=== PATIENT | female | born 1990 | race Caucasian/White ===

== ENCOUNTER → 2018-10-20 08:42 | Outpatient (CLI) | payer OTHER, SELFPAY ==
[2018-10-20 10:07] LABS: Alanine Aminotransferase 18 IU/L (9-52); Albumin 4.1 g/dL (3.5-5.0); Albumin Globulin Ratio 1.3 (1.0-2.8); Alkaline Phosphatase 69 U/L (38-126); Aspartate Aminotransferase 28 IU/L (14-36); BUN Creatinine Ratio 12.9 (6-22); Bilirubin Total 0.3 mg/dL (0.2-1.3); Blood Urea Nitrogen 9 mg/dL (7-17); Calcium 8.6 mg/dL (8.4-10.2); Carbon Dioxide 24 mmol/L (22-32); Chloride 109 mmol/L (98-107); Cholesterol 201 mg/dL (140-199); Estimated Glomerular Filt Rate > 60.0 mL/min (>60); Globulin 3.2 g/dL (1.7-4.1); Glucose 89 mg/dL (70-100); HDL Cholesterol 50 mg/dL (40-60); HEMOLYSIS < 15 (0-50); LDL Cholesterol Calculated 136 mg/dL (<100); Potassium 3.6 mmol/L (3.4-5.1); Sodium 141 mmol/L (137-145); Total Protein 7.3 g/dL (6.3-8.2); Triglycerides 74 mg/dL (35-150)
[2018-10-20 10:34] LABS: Thyroid Stimulating Hormone 1.65 uIU/mL (0.47-4.68)
== END ==
PROVIDERS: Visit Provider Physician Assistant
DX: E66.01 Morbid (severe) obesity due to excess calories (principal); Z13.1 Encounter for screening for diabetes mellitus; Z13.220 Encounter for screening for lipoid disorders; Z13.6 Encounter for screening for cardiovascular disorders; Z68.41 Body mass index [BMI] 40.0-44.9, adult; Z83.49 Family history of other endocrine, nutritional and metabolic diseases
CPT/HCPCS: 36415; 80053; 80061; 84443

== ENCOUNTER → 2021-03-07 15:00 | Outpatient (CLI) | payer OTHER, SELFPAY ==
--- NOTE | 2021-03-07 15:13 | DI.RAD.S_ITS ---
PROCEDURE: XR TIBIA FIBULA LT 2V INDICATIONS: LEFT LOWER LEG PAIN/INJURY TECHNIQUE: 2 views of the tibia and fibula were acquired. COMPARISON: None. FINDINGS: Bones: No acute fractures or dislocations. No suspicious bony lesions. Prominent plantar calcaneal spur. Soft tissues: No suspicious soft tissue calcifications or masses. IMPRESSION: Left tibia/fibula without acute fracture or dislocation. Prominent plantar calcaneal spur. If there is persistent clinical concern for occult fracture given adequate mechanism of injury, consider repeat imaging in 10-14 days. Dictated by: Migel Luna M.D. on 03/07/2021 at 16:14 Approved by: Migel Luna M.D. on 03/07/2021 at 16:25
== END ==
PROVIDERS: PCP Family Medicine; Referring Provider Family Medicine; Visit Provider Family Medicine
DX: S89.92XA Unspecified injury of left lower leg, initial encounter; M79.605 Pain in left leg; M77.32 Calcaneal spur, left foot; X58.XXXA Exposure to other specified factors, initial encounter
CPT/HCPCS: 73590

== ENCOUNTER → 2021-06-13 09:28 | Outpatient (CLI) | payer BC, SELFPAY ==
--- NOTE | 2021-06-13 09:33 | DI.US.S_ITS ---
PROCEDURE: US ABDOMEN COMPLETE INDICATIONS: ABDOMEN PAIN TECHNIQUE: Real-time scanning was performed of the abdominal and retroperitoneal organs, with image documentation. COMPARISON: None. FINDINGS: Liver: Liver is normal in size and homogeneous in echotexture. Gallbladder: Gallbladder is normal in sonographic appearance without gallstones, gallbladder wall thickening, pericholecystic fluid, or abnormal sonographic Hinkle's. The neck of the gallbladder was somewhat difficult to visualize secondary to patient scanning characteristics. Biliary ducts: Intrahepatic bile ducts are non-dilated. Extrahepatic bile duct caliber measures 3 mm. Normal is 6-7 mm or less in diameter, or 10 mm or less post-cholecystectomy. Pancreas: Pancreas was not well visualized. Spleen: Spleen is normal in size and homogeneous in echotexture. Kidneys: Kidneys are normal in size and echotexture. Right kidney measures 10.6 cm long; left kidney measures 11.2 cm long. No hydronephrosis or nephrolithiasis. No solid masses. Aorta: Visualized aorta is normal in caliber at less than 3 cm. Iliacs: Proximal common iliac arteries are normal in caliber at less than 2.5 cm. IVC: Intrahepatic inferior vena cava is patent. Miscellaneous: No free abdominal fluid. IMPRESSION: Abdomen without acute sonographic abnormalities to explain patient's epigastric pain. Dictated by: Migel Luna M.D. on 06/13/2021 at 14:02 Approved by: Migel Luna M.D. on 06/13/2021 at 14:03
== END ==
PROVIDERS: PCP Family Medicine; Referring Provider Family Medicine; Visit Provider Family Medicine
DX: R10.13 Epigastric pain (principal)
CPT/HCPCS: 76700

== ENCOUNTER → 2022-02-26 14:15 | Outpatient (CLI) | payer OTHER, SELFPAY ==
--- NOTE | 2022-02-26 | DI.US.S_ITS ---
PROCEDURE: US OB <= 14 WEEKS FETUS INDICATIONS: SIZE AND DATES OUTSIDE/PRIOR DATING DATA: Last menstrual period (LMP): January 06, 2022. LMP-based estimated date of delivery (SEFERINO): October 13, 2022 First dating scan (date and location): February 26, 2022, [facility]. TECHNIQUE: Real-time scanning was performed of the fetus and maternal pelvic organs, with image documentation. Endovaginal scanning was also performed to better visualize the fetus and maternal ovaries. COMPARISON: None. FINDINGS: Embryo: There is a gestational sac visualized which measures 1.6 cm in diameter and calculates to a gestational age of 6 weeks 3 days by mean gestational sac diameter. No pole is visualized. A yolk sac is visualized. Maternal organs: The left ovary is not seen. There is likely a right corpus luteal cyst present. There is a anterior midline intramural fibroid which measures 1.7 x 1.9 x 1.5 cm in diameter. IMPRESSION: 1. Gestational sac visualized with yolk sac. No pole visualized. Gestational age by mean gestational sac diameter is 6 weeks 3 days suggesting early dates. Continued sonographic surveillance recommended. 2. Probable right corpus luteal cyst. Please note, in the absence of pole visualized, ectopic cannot be excluded and close clinical surveillance is recommended. We strive to produce accurate, complete, and clear reports of imaging services. To assist us in improving patient care, this report was composed using standard report templates and voice recognition software. Therefore, it may contain abnormal punctuation, insertions and/or omissions. Occasional wrong-word or sound-alike substitutions may occur. Though we review the report and make efforts to correct it, we do recommend that the report be read carefully in proper context to recognize any text inaccuracies. Dictated by: Janet Lozano M.D. on 02/26/2022 at 16:53 Approved by: Janet Lozano M.D. on 02/26/2022 at 16:55
== END ==
PROVIDERS: PCP Family Medicine; Referring Provider Family Medicine; Visit Provider Family Medicine
DX: Z36.87 Encounter for antenatal screening for uncertain dates (principal); Z3A.01 Less than 8 weeks gestation of pregnancy
CPT/HCPCS: 76801; 76817

== ENCOUNTER → 2022-03-21 16:10 | Outpatient (CLI) | payer OTHER, SELFPAY ==
[2022-03-21 17:06] LABS: Add Manual Diff / Slide Review NO; Basophils Absolute Auto 0 /uL (0-100); Basophils Percent Auto 0.4 % (0-2); Eosinophils Absolute Auto 100 /uL (0-450); Hematocrit 39.1 % (36-46); Hemoglobin 13.2 g/dL (12.0-16.0); Lymphocytes Absolute Auto 1500 /uL (1100-4500); Lymphocytes Percent Auto 14.6 % (25-40); Mean Corpuscular HGB Conc 33.7 % (30-36); Mean Corpuscular Hemoglobin 29.3 PG (26-34); Monocytes Absolute Auto 500 /uL (0-900); Monocytes Percent Auto 4.4 % (3-14); Neutrophils Absolute Auto 8400 /uL (1500-7000); Neutrophils Percent Auto 79.6 % (50-75); Platelet Count 194 X10^3/uL (150-400); Red Blood Cell Count 4.49 X10^6/uL (4.0-5.2); Red Cell Distribution Width 12.8 % (11.6-14.8); White Blood Cell Count 10.5 X10^3/uL (4.5-11.0)
[2022-03-21 17:39] LABS: HCG Quantitative /Beta subunit 13978 mIU/mL
== END ==
PROVIDERS: PCP Family Medicine; Referring Provider Family Medicine; Visit Provider Family Medicine
DX: O46.91 Antepartum hemorrhage, unspecified, first trimester (principal); Z3A.00 Weeks of gestation of pregnancy not specified
CPT/HCPCS: 36415; 84702; 85025; 86900; 86901

== ENCOUNTER 2022-05-11 21:08 | Observation (INO) | payer OTHER, SELFPAY ==
[2022-05-11 21:12] VITALS: BP 129/78; PULSE 96; RESP 16; TEMP 36.3; O2SAT 96
[2022-05-11] MEDS: SODIUM CHLORIDE 0.9% 1,000 ML 1000 ML IV (21:24)
[2022-05-11 21:40] LABS: Add Manual Diff / Slide Review NO; Basophils Absolute Auto 100 /uL (0-100); Basophils Percent Auto 0.4 % (0-2); Eosinophils Absolute Auto 200 /uL (0-450); Eosinophils Percent Auto 1.5 % (2-4); Hematocrit 37.1 % (36-46); Hemoglobin 12.2 g/dL (12.0-16.0); Lymphocytes Absolute Auto 1700 /uL (1100-4500); Mean Corpuscular HGB Conc 32.8 % (30-36); Mean Corpuscular Hemoglobin 28.3 PG (26-34); Mean Corpuscular Volume 86.3 fL (80-100); Monocytes Absolute Auto 700 /uL (0-900); Monocytes Percent Auto 5.7 % (3-14); Neutrophils Absolute Auto 9600 /uL (1500-7000); Neutrophils Percent Auto 78.4 % (50-75); Platelet Count 213 X10^3/uL (150-400); Red Cell Distribution Width 13.4 % (11.6-14.8); White Blood Cell Count 12.2 X10^3/uL (4.5-11.0)
[2022-05-11 21:43] LABS: Bilirubin Urine UA NEGATIVE (NEGATIVE); Color Urine UA RED; Glucose Urine UA NEGATIVE (Negative); Ketones Urine UA NEGATIVE (NEGATIVE); Leukocyte Esterase Urine UA NEGATIVE (NEGATIVE); Nitrite Urine UA NEGATIVE (Negative); Occult Blood Urine UA 3+ (Negative); Protein Urine UA 2+ (Negative); Specific Gravity Urine UA >=1.030 (1.000-1.035); Urobilinogen Urine UA 0.2 E.U./dL (0.2)
[2022-05-11 21:44] LABS: Appearance Urine UA Turbid
[2022-05-11 21:45] LABS: Bacteria Urine None Seen; Culture Indicated Urine Cult Not Indicated; RBC Urine >100/HPF (0-5/HPF); Squamous Epithelial Cell Urine 0-1 /HPF (0-5/HPF); WBC Urine 0-1/HPF (0-5/HPF)
[2022-05-11 21:49] LABS: BUN Creatinine Ratio 13.5 (6-22); Blood Urea Nitrogen 12 mg/dL (7-17); Calcium 8.9 mg/dL (8.4-10.2); Carbon Dioxide 24 mmol/L (22-32); Chloride 103 mmol/L (98-107); Estimated Glomerular Filt Rate > 60 mL/min (>60); Glucose 89 mg/dL (70-100); HEMOLYSIS < 15 (0-50); Potassium 3.9 mmol/L (3.4-5.1); Sodium 138 mmol/L (137-145)
[2022-05-11 22:07] LABS: HCG Quantitative /Beta subunit 15.9 mIU/mL
[2022-05-12] VITALS (11 sets, daily range): BP systolic 103–125; BP diastolic 46–77; PULSE 58–86; RESP 10–19; TEMP 36.2–36.7; O2SAT 94–100; BMI 41.7
--- NOTE | 2022-05-12 | PATH_ITS ---
[facility] Accession Number: [id number] No. of containers..01 Tissue . 01 Material submitted: . product of conception - PRODUCTS OF CONCEPTION . 01 Diagnosis: Products of Conception: Chorionic villi present. No evidence of malignancy. [facility] 05/18/2022 0721 Local . 01 Electronically signed: . Steven Moss MD, PhD, Pathologist NPI- [id number] . 01 Gross description: . The specimen is received in formalin labeled with the patient's name, , and products of conception, and consists of multiple hernadez spongy to membranous soft tissue fragments admixed with hemorrhagic material aggregating to 5.7 x 4.5 x 1.3 cm. No tissue is identified. Director [employer] sections are submitted in cassettes A1-A3. ([id number]) /MRV 05/15/2022 1518 Local . 01 Pathologist provided ICD-10: O02.1 . 01 CPT . 803495 Specimen Comment: A courtesy copy of this report has been sent to [phone] Performed at: 01 [facility] [address] [place] [address], [place], [place] [id number] MD Samuel Kothari MD Phone: [phone]
--- NOTE | 2022-05-12 00:40 | ED.GENADULT ---
HPI - General Adult General Chief complaint: Vaginal Bleeding Stated complaint: Miscarriage in March, Very heavy bleeding Time Seen by Provider: 05/11/22 21:19 Source: patient Mode of arrival: Ambulatory History of Present Illness HPI narrative: 32-year-old with spontaneous miscarriage in March. She had an ultrasound at [facility] that showed an intrauterine with no heart rate on March 21. She began having bleeding that afternoon. She saw her primary care physician Dr. Felipe and together they decided to proceed with non intervention. She went onto bleed for approximately 2 weeks. She had 2 weeks of mild spotting and then mid April began having heavier bleeding that has proceeded until May 09 when she describes a dramatic increase in bleeding. Today she describes going through multiple pads an hour soaking completely through heavy pads thick jeans and towels on which she was sitting. She is not complaining of dizziness or nausea but notes that she is slightly lightheaded when she stands up. She comes to the emergency room for further evaluation. She denies any fever, cough, chills, cramping, severe abdominal pain, palpitations, headaches. She has no flank pain or dysuria Related Data Home Medications Medication Instructions Recorded Confirmed fluoxetine 10 mg capsule 10 mg PO DAILY 05/12/22 05/12/22 prenat.vits,valerie,yht-yoyh-tyjrf 1 tab PO DAILY 05/12/22 05/12/22 Allergies Allergy/AdvReac Type Severity Reaction Status Date / Time amoxicillin [AMOXICILLIN] Allergy Intermediate Rash Verified 05/12/22 13:17 Penicillins [PENICILLINS] Allergy Intermediate Severe rash Verified 05/12/22 13:17 Review of Systems Review of Systems Narrative: Remainder of complete review of systems is otherwise unremarkable except for that included in the HPI. Patient History Surgical History History of third molar tooth extraction Status post bunionectomy Social History household members: spouse and children Smoking Status: Never smoker second hand exposure: Yes alcohol intake: current substance use type: does not use Smoking Status: Never smoker alcohol intake frequency: holidays/special occasions only Substance Use Type: does not use Exam Initial Vital Signs Initial Vital Signs: Vital Signs Temperature 97.4 F L 05/11/22 21:12 Pulse Rate 96 H 05/11/22 21:12 Respiratory Rate 16 05/11/22 21:12 Blood Pressure 129/78 05/11/22 21:12 Pulse Oximetry 96 05/11/22 21:12 Oxygen Delivery Method 05/11/22 21:12 General: Healthy appearing, in no acute distress. Able to give a complete and coherent history. Well-nourished well-developed HEENT: Moist mucous membranes, normal sclera with reactive pupils, Respiratory: Lungs are clear to auscultation, no wheezing no rales no rhonchi. Full and symmetrical air movement Cardiac: Regular rate and rhythm no murmurs no bruits Abdomen: Soft, nontender, good bowel tones, no flank pain Skin: Warm and dry, no rashes Neurologic: Grossly neurologically intact with no obvious asymmetries or abnormalities Extremities: No trauma, well perfused Psych: Cooperative, appropriate insight and affect Transabdominal bedside ultrasound is limited by empty bladder and body habitus but suggests a large uterus at 9 x 5 x 6 with endometrium 1-2 cm in thickness throughout the uterus. Formal ultrasound is requested Course Orders Ordered: Discontinued Medications Hydrocodone Bitart/Acetaminophen (Hydrocodone/Acet 5/325 Tablet) 1 tab PO PACUNOW PRN PRN Reason: Mild or moderate pain Last Admin: 05/12/22 13:45 Dose: 1 tab Documented By: SHAY Hydromorphone HCl (Hydromorphone 0.5 Mg Inj) 0.5 mg IV Q2H PRN PRN Reason: Pain, Severe (7-10) Hydromorphone HCl (Hydromorphone 2 Mg Inj) 0 mg IV Q5M PRN PRN Reason: Pain, Moderate (4-6) Sodium Chloride (Normal Saline 0.9%) 1,000 mls @ 1,000 mls/hr IV BOLUS ONE Stop: 05/11/22 22:19 Last Infusion: 05/11/22 22:39 Dose: 0 mls/hr Documented By: Admin: 05/11/22 21:24 Dose: 1,000 mls/hr Documented By: DEV Sodium Chloride (Normal Saline 0.9%) 1,000 mls @ 125 mls/hr IV CONT DOREEN Last Admin: 05/12/22 10:41 Dose: 125 mls/hr Documented By: Infusion: 05/12/22 10:41 Dose: 125 mls/hr Documented By: Admin: 05/12/22 03:59 Dose: 125 mls/hr Documented By: EMILY Lactated Ringer's (Lactated Ringers) 1,000 mls @ 42 mls/hr IV CONT DOREEN Last Infusion: 05/12/22 13:56 Dose: 0 mls/hr Documented By: Admin: 05/12/22 12:28 Dose: 42 mls/hr Documented By: SHAWN Cefazolin Sodium/Dextrose (Ancef) 100 mls @ 200 mls/hr IV NOW ONE Stop: 05/12/22 14:01 Last Infusion: 05/12/22 13:27 Dose: 0 mls/hr Documented By: Admin: 05/12/22 13:22 Dose: 200 mls/hr Documented By: Ondansetron HCl (Ondansetron 4 Mg/2 Ml Inj) 4 mg IV Q4HR PRN PRN Reason: Nausea And Vomiting Ondansetron HCl (Ondansetron 4 Mg/2 Ml Inj) 4 mg IV NOW PRN PRN Reason: Nausea And Vomiting Oxycodone/Acetaminophen (Oxycodone/Acetaminophen 5/325 Tablet) 1 tab PO Q4HR PRN PRN Reason: Pain, Moderate (4-6) Vital Signs Vital signs: Vital Signs - 8 hr 05/11/22 21:12 05/12/22 00:42 05/12/22 00:42 Temperature 97.4 F L Pulse Rate 96 H 86 Respiratory Rate 16 Blood Pressure 129/78 121/77 Pulse Oximetry 96 94 Oxygen Delivery Method Room Air Room Air Medical Decision Making Lab Data 05/11/22 21:27 05/11/22 21:27 Labs: Lab Results 05/11/22 05/11/22 05/11/22 Range/Units 21:20 21:27 21:27 WBC 12.2 H (4.5-11.0) X10^3/uL RBC 4.30 (4.0-5.2) X10^6/uL Hgb 12.2 (12.0-16.0) g/dL Hct 37.1 (36-46) % MCV 86.3 (80-100) fL MCH 28.3 (26-34) PG MCHC 32.8 (30-36) % RDW 13.4 (11.6-14.8) % Plt Count 213 (150-400) X10^3/uL Neut % (Auto) 78.4 H (50-75) % Lymph % (Auto) 14.0 L (25-40) % [place] % (Auto) 5.7 (3-14) % Eos % (Auto) 1.5 L (2-4) % Baso % (Auto) 0.4 (0-2) % Neut # (Auto) 9600 H (8430-9147) /uL Lymph # (Auto) 1700 (7572-9171) /uL [place] # (Auto) 700 (0-900) /uL Eos # (Auto) 200 (0-450) /uL Baso # (Auto) 100 (0-100) /uL Sodium 138 (137-145) mmol/L Potassium 3.9 (3.4-5.1) mmol/L Chloride 103 (98-107) mmol/L Carbon Dioxide 24 (22-32) mmol/L BUN 12 (7-17) mg/dL Creatinine 0.89 (0.52-1.04) mg/dL Estimated GFR > 60 (>60) mL/min BUN/Creatinine Ratio 13.5 (6-22) Glucose 89 (70-100) mg/dL Calcium 8.9 (8.4-10.2) mg/dL HCG, Quant mIU/mL Urine Color Red Urine Appearance Turbid Urine pH 6.0 (4.5-8.0) Ur Specific Moore >=1.030 H (1.000-1.035) Urine Protein 2+ H (Negative) Urine Glucose (UA) Negative (Negative) g/dL Urine Ketones Negative (NEGATIVE) Urine Occult Blood 3+ H (Negative) Urine Nitrate Negative (Negative) Urine Bilirubin Negative (NEGATIVE) Urine Urobilinogen 0.2 (0.2) E.U./dL Ur Leukocyte Esterase Negative (NEGATIVE) Urine RBC >100/hpf H (0-5/HPF) Urine WBC 0-1/hpf (0-5/HPF) Ur Squamous Epith Cells 0-1 /hpf (0-5/HPF) Urine Bacteria None seen (None) Ur Culture Indicated? Cult not indicated Blood Type Antibody Screen 05/11/22 05/11/22 05/12/22 Range/Units 21:27 21:27 02:30 WBC (4.5-11.0) X10^3/uL RBC (4.0-5.2) X10^6/uL Hgb 10.4 L (12.0-16.0) g/dL Hct 31.9 L (36-46) % MCV (80-100) fL MCH (26-34) PG MCHC (30-36) % RDW (11.6-14.8) % Plt Count (150-400) X10^3/uL Neut % (Auto) (50-75) % Lymph % (Auto) (25-40) % [place] % (Auto) (3-14) % Eos % (Auto) (2-4) % Baso % (Auto) (0-2) % Neut # (Auto) (7272-1528) /uL Lymph # (Auto) (5212-9000) /uL [place] # (Auto) (0-900) /uL Eos # (Auto) (0-450) /uL Baso # (Auto) (0-100) /uL Sodium (137-145) mmol/L Potassium (3.4-5.1) mmol/L Chloride (98-107) mmol/L Carbon Dioxide (22-32) mmol/L BUN (7-17) mg/dL Creatinine (0.52-1.04) mg/dL Estimated GFR (>60) mL/min BUN/Creatinine Ratio (6-22) Glucose (70-100) mg/dL Calcium (8.4-10.2) mg/dL HCG, Quant 15.9 mIU/mL Urine Color Urine Appearance Urine pH (4.5-8.0) Ur Specific Moore (1.000-1.035) Urine Protein (Negative) Urine Glucose (UA) (Negative) g/dL Urine Ketones (NEGATIVE) Urine Occult Blood (Negative) Urine Nitrate (Negative) Urine Bilirubin (NEGATIVE) Urine Urobilinogen (0.2) E.U./dL Ur Leukocyte Esterase (NEGATIVE) Urine RBC (0-5/HPF) Urine WBC (0-5/HPF) Ur Squamous Epith Cells (0-5/HPF) Urine Bacteria (None) Ur Culture Indicated? Blood Type O Positive Antibody Screen Negative Point of Care Testing Test Results Positive Point of care testing: Point of Care Testing Test Results Positive MDM Narrative Medical decision making narrative: CC: Continued vaginal bleeding after miscarriage identified 03/21/2022. Significant worsening of problem that should have been self-limited, uncertain diagnosis with potential for significant systemic symptoms Complicating co-morbidities: Obesity Corroborating data: Data collected from: patient, Medical records reviewed: [facility] notes and ultrasound note from [facility] are reviewed Differential considered: New with miscarriage, retained products of conception, infection, GI bleeding Exam documented above, pertinent findings include: Confirm vaginal bleeding, enlarged uterus Lab Test results independently reviewed as above. Pertinent findings: Quantitative hCG is still present and measuring 15.9 Initial H&H is 12.2 and 37.1. Mild leukocytosis at 12.2 with minimal left shift. Repeat H&H shows dropped to 10.4 and 31.9 with continued bleeding and a single L of fluid resuscitation Imaging studies independently reviewed: Ultrasound shows uterus that is 10.5 x 5.7 x 4.8 cm with borderline thickened heterogeneous endometrium in the lower uterine said spent measuring 14 mm in thickness with hyperemia presumed retained products of conception in the lower uterine segment. Corpus luteum left ovary. An intramural right anterior fundal fibroid measuring 2.2 x 2.2 x 1.6 cm and left anterior subserosal fibroid 1 x 0.7 x 0.7 cm Consultations: Dr. Lo OBGYPablo. Agrees to admit the patient this evening for continued IV fluids and anticipation of D&C later this morning Treatments: IV fluids Discussion: Patient with retained products of conception with increased bleeding over the last 72 hours drop in hematocrit from 37.1-31.9. Continued bleeding at this time. She is admitted to Dr. Lo with bridging orders written from the emergency department. Last oral intake was 1:00 a.m., goldfish crackers. She has remained NPO since then. Findings reviewed with her along with recommendations for hospitalization in anticipation of D&C later this morning. Questions are answered she understands plan and agrees with proceeding Discharge Plan Departure Patient Disposition: Admitted as Observation Clinical Impression: Retained products of conception, Acute blood loss anemia Admit Date/Time: 05/12/22 02:30 Admit Provider: Key Lo
--- NOTE | 2022-05-12 00:53 | DI.US.S_ITS ---
PROCEDURE: US PELVIC COMPLETE INDICATIONS: HEAVY BLEEDING. SPONTANEOUS 03/25/22. RPOC? TECHNIQUE: Real-time scanning was performed of the pelvic organs, with image documentation. Additional endovaginal scanning was necessary due to incomplete visualization of the adnexal and endometrial structures by transabdominal scanning. COMPARISON: None. FINDINGS: Uterus: Uterus is anteverted and normal in size at 10.4 x 5.7 x 4.9 cm. The myometrium is homogeneous. The endometrium measures 3.3 mm combined thickness. There is endometrial thickening with heterogenous increased vascularity in the mid endocervical canal, probably reflecting retained products of conception. Myometrial fibroids noted on the anterior right intramural fibroid measuring 2.2 x 2.0 x 1.6 cm and left anterior subserosal fibroid measuring 1 x 0.7 cm. Ovaries: The right ovary measures 3.7 x 2.3 x 2.9 cm, with a calculated ovarian volume of 13.4 cc. The left ovary measures 2.8 x 2.0 x 1.8 cm, with a calculated ovarian volume of 5.3 cc. The ovaries have a normal sonographic appearance. There is a left ovarian irregular cyst with peripheral vascularity measuring 2.0 x 1.2 No adnexal masses are seen. Other: No pathologic free abdominal or pelvic fluid. IMPRESSION: Probable retained products of conception in the lower uterine segment/endocervical canal. Left ovarian corpus luteum cyst Uterine fibroids Note: Final report is concordant with preliminary interpretation by [employer] Approved by: Byron Lawson M.D. on 05/12/2022 at 8:07
[2022-05-12 02:36] LABS: Hematocrit 31.9 % (36-46); Hemoglobin 10.4 g/dL (12.0-16.0)
[2022-05-12 02:59] LABS: COVID19 -Nasal RAPID Negative (Negative)
[2022-05-12] MEDS: SODIUM CHLORIDE 0.9% 1,000 ML 125 ML IV ×2 (03:59→10:41)
--- NOTE | 2022-05-12 04:13 | PC.ADMIT ---
[email or web address] Admission Note: The patient,Socorro Orellana,32 y/o, was given written information regarding hospital policies, unit procedures and contact persons. Patient's smoking status: Never smoker. Vital Signs - 8 hr 05/11/22 21:12 05/12/22 00:42 05/12/22 00:42 Temperature 97.4 F L Pulse Rate 96 H 86 Respiratory Rate 16 Blood Pressure 129/78 121/77 Pulse Oximetry 96 94 Oxygen Delivery Method Room Air Room Air 05/12/22 04:09 Temperature Pulse Rate Respiratory Rate Blood Pressure Pulse Oximetry Oxygen Delivery Method Room Air Patient admitted to room 217 per wheelchair from ER due to heavy vaginal bleeding with expected surgery in a.m. to have D&C. Is alert and oriented. Breath sounds CTA. HRR w/telemetry reading of SR. Denies dizziness or lightheadedness. Denies nausea. BT present and abdomen is soft. Denies pain but does state she is having some cramping discomfort. Voiding without dysuria but is having hematuria related to vaginal bleeding; no clots noted. Is independent with mobility. Fall risk score is low but instructed to call for assist when getting up if she experiences dizziness, lightheadedness or weakness. Instructed that she is NPO for impending surgery and she verbalizes understanding. Oriented to call light and bed controls.
--- NOTE | 2022-05-12 10:47 | CM.DANOTE ---
DCP: Case received, EMR reviewed and met with patient. Introduced self and role. Was able to obtain some history from patient. DCP assessment completed with information currently available. Patient is a 32 year old female who admitted early this morning to the care of Dr. Lo, [employer]. PCP: Dr. Felipe. Payer: confirmed: [facility]. Patient came to the hospital via private vehicle secondary to increased vaginal bleeding. Notes indicate that patient had a spontaneous miscarriage in March. She had an ultrasound at [facility], noting intrauterine with no heart rate. Patient continue to bleed for about 2 weeks, but starting 05/09, bleeding had increased dramatically. Patient is here for D&C which is scheduled for this afternoon. Met with patient in her room. She had already been up to the bathroom. She is independent, is employed at [employer]. She is alert and oriented, resides here in [place] [address]. Confirmed with her that she still sees Dr. Felipe as her medical provider. P: DCP to continue to follow. Patient should be able to go home after procedure, when deemed medically stable. Paulina Beard RN/Certification And Selection Specialist Discharge Planning/Care Management CM Discharge Assessment Start: 05/12/22 10:45 Freq: Status: Active Protocol: Document 05/12/22 10:45 (Rec: 05/12/22 10:47 [email or web address]) Discharge Planning Assessment Assigned Nuclear Instructor Paulina Beard RN/Certification And Selection Specialist Advance Directives? No History Provided By Patient,Medical Record Prior Living Arrangements House Household Members spouse,children Type of transporation used prior to Drives own vehicle admit Independent with ADL's Yes Is patient alert and oriented? Yes Caregiver for Another No Barriers to Discharge No Discharge Plan Home Transportation Arrangement Family Referrals Initiated None needed Whiteboard Updated in Patient Room with Yes name and ext. # of Nuclear Instructor Review Status In Process Next Review Type Continued Stay Review
[2022-05-12] MEDS: LACTATED RINGERS 1,000 ML 42 ML IV (12:28)
--- NOTE | 2022-05-12 12:54 | PM.HP.1 ---
History of Present Illness History of Present Illness Date Patient Seen: 05/12/22 Time Patient Seen: 12:55 Chief complaint: Miscarriage in March, Very heavy bleeding Narrative: Patient is a 32-year-old 3 para 1 who was admitted through the emergency department overnight for an incomplete miscarriage. Patient had a missed in March of 2022. She passed a lot of clots and tissue on March 25, 2022. She started bleeding again on April 19 and bled heavy for 5 days. She then tapered off and bled for a total of 2 weeks. She had intercourse on Saturday and then started bleeding again on Saturday. Saturday she was changing multiple pads in an hour. She came to the emergency room overnight. Patient History Surgical History History of third molar tooth extraction Status post bunionectomy Family & Social History Social History: household members spouse,children Prior Living Arrangements House Safety & Behavioral: Feels Safe in Current Yes Environment Been Physically Hurt or No Threatened By a Person Tobacco & Substance use: Smoking Status Never smoker alcohol intake current alcohol intake frequency a few times a week Substance Use Type does not use Meds Home Medications and Allergies Home Medications Medication Instructions Recorded Confirmed Type fluoxetine 10 mg capsule 10 mg PO DAILY 05/12/22 05/12/22 History prenat.vits,valerie,tgs-sugk-[id number] 1 tab PO DAILY 05/12/22 05/12/22 History Allergies Allergy/AdvReac Type Severity Reaction Status Date / Time amoxicillin [AMOXICILLIN] Allergy Intermediate Rash Verified 05/11/22 21:13 Penicillins [PENICILLINS] Allergy Intermediate Severe rash Verified 05/11/22 21:13 Exam Vital Signs (past 8 hours): - 05/12/22 08:23 05/12/22 08:10 05/12/22 11:51 Temperature 97.8 F 97.8 F Pulse Rate 68 73 Respiratory Rate 16 16 Blood Pressure 118/52 L 103/49 L Pulse Oximetry 97 98 Oxygen Delivery Method Room Air Oxygen Flow Rate 0 05/12/22 12:23 Temperature 98.1 F Pulse Rate 68 Respiratory Rate 16 Blood Pressure 120/75 Pulse Oximetry 98 Oxygen Delivery Method Room Air Oxygen Flow Rate Oxygen Delivery Method Room Air Oxygen Flow Rate 0 Narrative Exam Narrative: HEENT: No thyromegaly, no anterior cervical or supraclavicular lymphadenopathy. Lungs:Clear to auscultation bilaterally, no wheezes. Cardiovascular: Regular rate and rhythm, no murmurs, rubs, or gallops. Abdomen: No scars. No hepatosplenomegaly. No masses palpable. External genitalia: Normal Vagina: Normal Cervix: Normal Bimanual exam: 7 Week size anterior uterus. Mobile. Extremities: No edema Objective Labs 05/12/22 02:30 05/11/22 21:27 Labs: Laboratory Results - last 24 hr 05/11/22 05/11/22 05/11/22 21:20 21:27 21:27 WBC 12.2 H RBC 4.30 Hgb 12.2 Hct 37.1 MCV 86.3 MCH 28.3 MCHC 32.8 RDW 13.4 Plt Count 213 Neut % (Auto) 78.4 H Lymph % (Auto) 14.0 L [place] % (Auto) 5.7 Eos % (Auto) 1.5 L Baso % (Auto) 0.4 Neut # (Auto) 9600 H Lymph # (Auto) 1700 [place] # (Auto) 700 Eos # (Auto) 200 Baso # (Auto) 100 Sodium 138 Potassium 3.9 Chloride 103 Carbon Dioxide 24 BUN 12 Creatinine 0.89 Estimated GFR > 60 BUN/Creatinine Ratio 13.5 Glucose 89 Calcium 8.9 HCG, Quant Urine Color Red Urine Appearance Turbid Urine pH 6.0 Ur Specific [place] >=1.030 H Urine Protein 2+ H Urine Glucose (UA) Negative Urine Ketones Negative Urine Occult Blood 3+ H Urine Nitrate Negative Urine Bilirubin Negative Urine Urobilinogen 0.2 Ur Leukocyte Esterase Negative Urine RBC >100/hpf H Urine WBC 0-1/hpf Ur Squamous Epith Cells 0-1 /hpf Urine Bacteria None seen Ur Culture Indicated? Cult not indicated SARS-CoV-2 (PCR) Blood Type Antibody Screen 05/11/22 05/11/22 05/12/22 21:27 21:27 02:30 WBC RBC Hgb 10.4 L Hct 31.9 L MCV MCH MCHC RDW Plt Count Neut % (Auto) Lymph % (Auto) [place] % (Auto) Eos % (Auto) Baso % (Auto) Neut # (Auto) Lymph # (Auto) [place] # (Auto) Eos # (Auto) Baso # (Auto) Sodium Potassium Chloride Carbon Dioxide BUN Creatinine Estimated GFR BUN/Creatinine Ratio Glucose Calcium HCG, Quant 15.9 Urine Color Urine Appearance Urine pH Ur Specific [place] Urine Protein Urine Glucose (UA) Urine Ketones Urine Occult Blood Urine Nitrate Urine Bilirubin Urine Urobilinogen Ur Leukocyte Esterase Urine RBC Urine WBC Ur Squamous Epith Cells Urine Bacteria Ur Culture Indicated? SARS-CoV-2 (PCR) Blood Type O Positive Antibody Screen Negative 05/12/22 02:40 WBC RBC Hgb Hct MCV MCH MCHC RDW Plt Count Neut % (Auto) Lymph % (Auto) [place] % (Auto) Eos % (Auto) Baso % (Auto) Neut # (Auto) Lymph # (Auto) [place] # (Auto) Eos # (Auto) Baso # (Auto) Sodium Potassium Chloride Carbon Dioxide BUN Creatinine Estimated GFR BUN/Creatinine Ratio Glucose Calcium HCG, Quant Urine Color Urine Appearance Urine pH Ur Specific [place] Urine Protein Urine Glucose (UA) Urine Ketones Urine Occult Blood Urine Nitrate Urine Bilirubin Urine Urobilinogen Ur Leukocyte Esterase Urine RBC Urine WBC Ur Squamous Epith Cells Urine Bacteria Ur Culture Indicated? SARS-CoV-2 (PCR) Negative Blood Type Antibody Screen Assessment & Plan Assessment & Plan narrative: Assessment: 32-year-old 3 para 1 with an incomplete miscarriage Plan: Suction D&C The risks, benefits, and alternatives to the procedure were explained to the patient. The risks including bleeding, infection, and uterine perforation. She understands these risks and agrees to proceed. A full par Q was held and consent form was signed. Time Spent With Patient Time with patient: less than 30 minutes Critical Care time: I spent a total of [] minutes of critical care time on this patient's care today; this time is exclusive of procedural time.
--- NOTE | 2022-05-12 12:57 | PM.PREOP ---
Pre-operative Note COVID-19 Criteria for continued procedure: Non-surgical alternatives not available or appropriate per current SOC Interval Note History & Physical reviewed/Exam performed by Physician: Yes Changes to H&P: No H&P completed within 30 days and has changed as indicated here:: 05/12/22
--- NOTE | 2022-05-12 13:10 | SUR.OPER ---
Lithotomy on padded OR bed, head on pillow, arms secured on padded arm boards at <90 degrees abduction. Legs secured in padded yellow fins stirrups. Pt positioned per direction and supervision of Dr Lo.
[2022-05-12] MEDS: CEFAZOLIN 2 GM/100 ML PREMIX 100 ML IV (13:22)
--- NOTE | 2022-05-12 13:33 | SUR.PHASEI ---
Received to PACU after general anesthesia. Airway patent, self maintained. Report from LM Rock and Dr Mcmullen. Oly D/I.
--- NOTE | 2022-05-12 13:40 | PM.GYNOP.1 ---
Operative Date/Time/Diagnoses Date of procedure: 05/12/22 Time of procedure: 14:04 Pre-op diagnosis: Incomplete Post-op diagnosis: same Procedure & Clinicians Procedure: Procedures Operation Date: 05/12/22 13:15 Actual Procedure Side Surgeon p suction Dilation and Curettage Not Applicable Key Lo MD Indications: Incomplete Brisk vaginal bleeding Thickened endometrium on ultrasound Surgeon: Key Lo Anesthesia Type: General (LMA) Operative Notes Findings: 8 week size anteverted uterine 3 cm x 2.5 cm piece of tissue removed from the uterus Large amount of products of conception Closure Type: not applicable Specimen(s): products of conception Estimated blood loss (mL): 75 Blood products transfused: none Procedure in detail: After informed consent was obtained, the patient was taken to the operating room where she was placed in the dorsal supine position. After adequate LMA general anesthesia was achieved, she was placed in the dorsal lithotomy position, and prepped and draped in the usual sterile fashion. A time-out was performed. A bivalve speculum was placed into the vagina and the anterior lip of the cervix was grasped with a single-tooth tenaculum. The cervical os was sequentially dilated until the 7 curved plastic curette could pass easily into the endometrial cavity. Several passes with suction revealed blood. On the third pass with suction there was a large piece of tissue stuck to the end of the catheter. This was removed and sent to pathology. Several more passes with suction revealed blood only. Gentle sharp curettage was performed yielding minimal amount of tissue. One more pass with suction revealed blood only. The piece of tissue that was removed had an odor to it. 2 g of Ancef were given. The instruments were removed from the uterus. The single-tooth tenaculum was removed from the anterior lip of the cervix. The bivalve speculum was removed from the vagina. Sponge, lap, and instrument counts were correct x2. The patient tolerated the procedure well, and was taken to PACU in stable condition. Complications: none Post-operative Condition: stable Disposition: PACU Plan for aftercare: Home after recovery
[2022-05-12] MEDS: HYDROCODONE/ACET 5/325 TABLET 1 TAB PO (13:45)
--- NOTE | 2022-05-12 14:07 | SUR.PHASEII ---
Pt going home per Dr Lo. Sue, RN notified. Pt up to bathroom and able to void
--- NOTE | 2022-05-12 14:44 | PC.NURSE ---
Pt transfered to OR, she is to be discharged from down their. She had minimal bleeding while here, 1 nancy pad change prior to leaving to OR. No clots seen. Condition was stable. Rest of discharge per OR.
== END 2022-05-12 14:18 | disposition home or self-care (01) ==
LOC: ED 21:19 → AC 05-12 02:31
PROVIDERS: Admitting Provider Obstetrics & Gynecology; Emergency Provider Emergency Medicine; PCP Family Medicine; Referring Provider Emergency Medicine; Visit Provider Obstetrics & Gynecology
PROC: (CPT 58120; principal; 2022-05-12 13:15)
DX: O03.4 Incomplete spontaneous abortion without complication (principal); D62 Acute posthemorrhagic anemia; Z20.822 Contact with and (suspected) exposure to COVID-19
CPT/HCPCS: 59812; 36415; 76830; 76856; 80048; 81001; 81025; 84702; 85014; 85018; 85025; 86850; 86900; 86901; 87635; 96360; 96361; 99284; C9803; G0378; J0690; J1100; J1885; J2250; J2405; J2704; J3010

== ENCOUNTER → 2022-11-27 10:48 | Outpatient (CLI) | payer OTHER, SELFPAY ==
[2022-05-12 03:41] VITALS: BMI 41.7
--- NOTE | 2022-11-27 | DI.RAD.S_ITS ---
PROCEDURE: XR CHEST 2V INDICATIONS: COUGH TECHNIQUE: 2 views of the chest were acquired. COMPARISON: None. FINDINGS: Surgical changes and devices: None. Lungs and pleura: Lungs are clear. No pleural effusions or pneumothorax. Mediastinum: Mediastinal contours are normal. Heart size is normal. Bones and chest wall: No suspicious bony abnormalities. Soft tissues appear unremarkable. IMPRESSION: Normal two view chest x-ray Approved by: Byron Lawson M.D. on 11/27/2022 at 16:08
== END ==
PROVIDERS: PCP Family Medicine; Referring Provider Registered Nurse; Visit Provider Registered Nurse
DX: R05.1 Acute cough (principal)
CPT/HCPCS: 71046

== ENCOUNTER → 2023-01-04 09:52 | Outpatient (CLI) | payer OTHER, SELFPAY ==
[2022-05-12 03:41] VITALS: BMI 41.7
== END ==
PROVIDERS: PCP Family Medicine; Referring Provider Registered Nurse; Visit Provider Registered Nurse
DX: R06.2 Wheezing (principal); J98.8 Other specified respiratory disorders
CPT/HCPCS: 94060; 94726; 94729

== ENCOUNTER → 2024-01-28 13:54 | Outpatient (CLI) | payer OTHER, SELFPAY ==
[2022-05-12 03:41] VITALS: BMI 41.7
--- NOTE | 2024-01-28 | DI.RAD.S_ITS ---
PROCEDURE: XR FOOT RT 2V INDICATIONS: right foot pain TECHNIQUE: 3 views of the foot were acquired. COMPARISON: None. FINDINGS: Bones: No fractures or dislocations. No suspicious bony lesions. Soft tissues: No tibiotalar joint effusion. Achilles tendon appears normal. IMPRESSION: Moderate calcaneal spur Approved by: Byron Lawson M.D. on 01/28/2024 at 17:13
== END ==
PROVIDERS: PCP Family Medicine; Referring Provider Family Medicine; Visit Provider Family Medicine
DX: M79.671 Pain in right foot (principal); M77.31 Calcaneal spur, right foot
CPT/HCPCS: 73620

== ENCOUNTER → 2024-06-19 13:42 | Outpatient (CLI) | payer OTHER, SELFPAY ==
[2022-05-12 03:41] VITALS: BMI 41.7
--- NOTE | 2024-06-19 13:46 | DI.RAD.S_ITS ---
PROCEDURE: XR KNEE RT 1TO2V INDICATIONS: BI KNEE PAIN TECHNIQUE: 3 views of the knee were acquired. COMPARISON: None. FINDINGS: Bones: No fractures or dislocations. No suspicious bony lesions. Moderate medial and lateral tibiofemoral and patellofemoral compartment narrowing with associated osteophytosis. Soft tissues: Small joint effusion. No suspicious soft tissue calcifications. IMPRESSION: KL grade 2 tricompartmental osteoarthritis without evidence of acute osseous abnormality. Small joint effusion noted. Dictated by: Warner Madison M.D. on 06/20/2024 at 12:04 Approved by: Warner Madison M.D. on 06/20/2024 at 12:04
--- NOTE | 2024-06-19 13:46 | DI.RAD.S_ITS ---
PROCEDURE: XR ANKLE RT MIN 3V INDICATIONS: BI KNEE PAIN TECHNIQUE: 3 views of the ankle were acquired. COMPARISON: None. FINDINGS: Bones: No fractures or dislocations. Ankle mortise is normally aligned. No suspicious bony lesions. Soft tissues: No tibiotalar joint effusion. Achilles tendon appears normal. Plantar calcaneal enthesopathy noted. IMPRESSION: No acute bony abnormality or significant effusion. Dictated by: Warner Madison M.D. on 06/20/2024 at 12:06 Approved by: Warner Madison M.D. on 06/20/2024 at 12:06
--- NOTE | 2024-06-19 13:46 | DI.RAD.S_ITS ---
PROCEDURE: XR KNEE STANDING BI INDICATIONS: BI KNEE PAIN TECHNIQUE: Single view of the knee(s) COMPARISON: None. FINDINGS: Bones: No acute fractures or dislocations. Patellar alignment is normal on the sunrise view. No suspicious bony lesions. Moderate medial and lateral tibiofemoral compartment narrowing with associated osteophytosis bilaterally. Soft tissues: No suspicious soft tissue calcification. IMPRESSION: Moderate bilateral medial and lateral tibiofemoral compartment narrowing with associated osteophytosis. Dictated by: Warner Madison M.D. on 06/20/2024 at 12:05 Approved by: Warner Madison M.D. on 06/20/2024 at 12:05
== END ==
PROVIDERS: PCP Family Medicine; Referring Provider Family Medicine; Visit Provider Family Medicine
DX: M17.11 Unilateral primary osteoarthritis, right knee (principal); M25.761 Osteophyte, right knee; M25.762 Osteophyte, left knee; M25.461 Effusion, right knee; M77.31 Calcaneal spur, right foot; M25.561 Pain in right knee; M25.562 Pain in left knee; G89.29 Other chronic pain
CPT/HCPCS: 73560; 73565; 73610

== ENCOUNTER 2024-07-02 12:33 | Emergency (ER) | payer OTHER, SELFPAY ==
[2022-05-12 03:41] VITALS: BMI 41.7
[2024-07-02 12:47] VITALS: BP 179/81; PULSE 68; RESP 18; TEMP 36.2; O2SAT 98; BMI 46.3
[2024-07-02 14:05] LABS: Add Manual Diff / Slide Review NO; Basophils Absolute Auto 100 /uL (0-100); Basophils Percent Auto 0.7 % (0-2); Eosinophils Absolute Auto 300 /uL (0-450); Eosinophils Percent Auto 2.6 % (2-4); Hemoglobin 14.6 g/dL (12.0-16.0); Lymphocytes Absolute Auto 1900 /uL (1100-4500); Lymphocytes Percent Auto 18.9 % (25-40); Mean Corpuscular HGB Conc 33.1 % (30-36); Mean Corpuscular Hemoglobin 29.3 PG (26-34); Mean Corpuscular Volume 88.6 fL (80-100); Monocytes Absolute Auto 600 /uL (0-900); Monocytes Percent Auto 5.9 % (3-14); Neutrophils Absolute Auto 7100 /uL (1500-7000); Neutrophils Percent Auto 71.9 % (50-75); Platelet Count 228 X10^3/uL (150-400); Red Blood Cell Count 4.97 X10^6/uL (4.0-5.2); Red Cell Distribution Width 13.2 % (11.6-14.8); White Blood Cell Count 9.9 X10^3/uL (4.5-11.0)
[2024-07-02 14:31] LABS: Alanine Aminotransferase 23 IU/L (<35); Albumin 4.5 g/dL (3.5-5.0); Albumin Globulin Ratio 1.2 (1.0-2.8); Alkaline Phosphatase 82 U/L (38-126); Aspartate Aminotransferase 29 IU/L (14-36); BUN Creatinine Ratio 14.1 (6-22); Bilirubin Total 0.8 mg/dL (0.2-1.3); Blood Urea Nitrogen 11 mg/dL (7-17); Calcium 9.3 mg/dL (8.4-10.2); Carbon Dioxide 24 mmol/L (22-32); Chloride 103 mmol/L (98-107); Estimated Glomerular Filt Rate > 60 mL/min (>60); Globulin 3.8 g/dL (1.7-4.1); Glucose 98 mg/dL (70-100); HEMOLYSIS 18 (0-50); Lipase 74 U/L (23-300); Potassium 4.1 mmol/L (3.4-5.1); Sodium 137 mmol/L (137-145); Total Protein 8.3 g/dL (6.3-8.2)
[2024-07-02 14:34] LABS: RBC Urine 0-1/HPF (0-5/HPF); Urine Volume 10mL (spun)
[2024-07-02 14:35] LABS: Bacteria Urine Occasional (0-1); Squamous Epithelial Cell Urine None Seen (0-5/HPF); WBC Urine None Seen (0-5/HPF)
[2024-07-02 16:56] VITALS: BP 161/87; PULSE 55; RESP 18
--- NOTE | 2024-07-02 18:27 | ED_ITS ---
HPI - Abdominal Pain <Sara Edouard PA-C - Last Filed: 07/02/24 21:36> General Chief Complaint: Abdominal Pain Stated Complaint: R Lower ABD pain 5 days Time Seen by Provider: 07/02/24 17:57 Source: patient Mode of arrival: Ambulatory History of Present Illness HPI narrative: Ms. Orellana is a very pleasant 34-year-old female with a past medical history of anemia who presents to the emergency department for right lower quadrant abdominal pain x5 days. Patient denies any precipitating injuries. Pain is worse after eating, drinking and with movement. Her menstrual cycle ended last week. She has no fevers or chills, nausea, vomiting, diarrhea, constipation, dysuria, vaginal bleeding, vaginal discharge. No flank pain. Related Data Previous Rx's Medication Instructions Recorded albuterol sulfate 90 mcg/actuation 2 puff inhalation Q4-6H PRN 11/24/22 aerosol inhaler shortness of breath or wheezing #6.7 grams letrozole 2.5 mg tablet 2.5 mg PO DAILY #5 tabs 05/06/24 ciprofloxacin HCl 500 mg tablet 500 mg PO Q12H 7 days #14 tabs 07/02/24 (Cipro) metronidazole 500 mg tablet 500 mg PO BID 7 days #14 tabs 07/02/24 prednisone 20 mg tablet 40 mg (2 x 20 mg) PO DAILY 5 days 07/02/24 #10 tabs Allergies Allergy/AdvReac Type Severity Reaction Status Date / Time amoxicillin [AMOXICILLIN] Allergy Intermediate Rash Verified 01/02/24 14:24 Penicillins [PENICILLINS] Allergy Intermediate Severe rash Verified 01/02/24 14:24 Review of Systems <Sara Edouard PA-C - Last Filed: 07/02/24 21:36> Review of Systems ROS Unobtainable: All systems reviewed & are unremarkable except as noted in HPI and below Patient History <Sara Edouard PA-C - Last Filed: 07/02/24 21:36> Medical History Depression (~2010) Anxiety (~2010) Chicken pox (~1995) Morbid obesity with BMI of 40.0-44.9, adult Surgical History H/O dilation and curettage Status post bunionectomy History of third molar tooth extraction Social History household members: spouse and children Smoking Status: Never smoker second hand exposure: Yes alcohol intake: current substance use type: does not use Smoking Status: Never smoker alcohol intake frequency: a few times a week Exam <Sara Edouard PA-C - Last Filed: 07/02/24 21:36> Narrative Exam Narrative: GENERAL: 34 year old patient appears stated age. Well-developed patient, in no acute distress. HEAD: Atraumatic. Normocephalic. EYES: No scleral icterus. No injection or drainage. ENT: Nose without bleeding, purulent drainage. Throat without erythema, tonsillar hypertrophy or exudate. Airway patent. NECK: Trachea midline. Cervical ROM intact. CARDIOVASCULAR: Regular rate and rhythm. RESPIRATORY: ?Nonlabored respirations. ?Speaking in clear, full sentences. ?Clear to auscultation. Breath sounds equal bilaterally. No wheezes, rales, or rhonchi. ? GASTROINTESTINAL: Abdomen soft, nondistended, bowel sounds present. She is tenderness to palpation in the right lower quadrant of the abdomen and the right upper quadrant of the abdomen but negative Hinkle's sign. Positive McBurney's point tenderness. Negative Rovsing sign. No rebound or guarding. EXTREMITIES: No edema or joint tenderness. BACK: No CVA tenderness. NEURO: AOx3. ?Clear speech. ?Moves all 4 extremities appropriately. SKIN: No rash or erythema of visible areas Initial Vital Signs Initial Vital Signs: Vital Signs Temperature 97.2 F L 07/02/24 12:47 Pulse Rate 68 07/02/24 12:47 Respiratory Rate 18 07/02/24 12:47 Blood Pressure 179/81 H 07/02/24 12:47 Pulse Oximetry 98 07/02/24 12:47 Oxygen Delivery Method Room Air 07/02/24 12:47 <Naomy Goodman DO - Last Filed: 07/03/24 04:04> Initial Vital Signs Initial Vital Signs: Vital Signs Temperature 97.2 F L 07/02/24 12:47 Pulse Rate 68 07/02/24 12:47 Respiratory Rate 18 07/02/24 12:47 Blood Pressure 179/81 H 07/02/24 12:47 Pulse Oximetry 98 03/27/25 12:47 Oxygen Delivery Method Room Air 07/02/24 12:47 Course <Sara Edouard PA-C - Last Filed: 07/02/24 21:36> Orders Ordered: Discontinued Medications Ciprofloxacin (Ciprofloxacin 250 Mg Tablet) 500 mg PO NOW ONE Stop: 07/02/24 21:29 Last Admin: 07/02/24 21:38 Dose: 500 mg Documented By: CARLOTA Sodium Chloride (Normal Saline 0.9%) 1,000 mls @ 1,000 mls/hr IV BOLUS ONE Stop: 07/02/24 19:36 Last Infusion: 07/02/24 20:16 Dose: Infused Documented By: Admin: 07/02/24 18:49 Dose: 1,000 mls/hr Documented By: CARLOTA Ketorolac Tromethamine (Ketorolac 30 Mg/Ml Vial) 15 mg IV NOW ONE Stop: 07/02/24 18:38 Last Admin: 07/02/24 18:50 Dose: 15 mg Documented By: CARLOTA Metronidazole (Metronidazole 500 Mg Tablet) 500 mg PO NOW ONE Stop: 07/02/24 21:29 Last Admin: 07/02/24 21:38 Dose: 500 mg Documented By: CARLOTA Ondansetron HCl (Ondansetron 4 Mg/2 Ml Inj) 4 mg IV NOW PRN PRN Reason: Nausea And Vomiting Ondansetron HCl (Ondansetron 4 Mg Odt) 4 mg PO NOW PRN PRN Reason: Nausea And Vomiting Ondansetron HCl (Ondansetron 4 Mg/2 Ml Inj) 4 mg IV NOW ONE Stop: 07/02/24 18:38 Last Admin: 07/02/24 18:49 Dose: 4 mg Documented By: CARLOTA Vital Signs Vital signs: Vital Signs - 8 hr 07/02/24 21:45 Pulse Rate 54 L Respiratory Rate 18 Blood Pressure 152/81 H Pulse Oximetry 99 Oxygen Delivery Method Room Air <Naomy Goodman DO - Last Filed: 07/03/24 04:04> Orders Ordered: Discontinued Medications Ciprofloxacin (Ciprofloxacin 250 Mg Tablet) 500 mg PO NOW ONE Stop: 07/02/24 21:29 Last Admin: 07/02/24 21:38 Dose: 500 mg Documented By: CARLOTA Sodium Chloride (Normal Saline 0.9%) 1,000 mls @ 1,000 mls/hr IV BOLUS ONE Stop: 07/02/24 19:36 Last Infusion: 07/02/24 20:16 Dose: Infused Documented By: Admin: 07/02/24 18:49 Dose: 1,000 mls/hr Documented By: CARLOTA Ketorolac Tromethamine (Ketorolac 30 Mg/Ml Vial) 15 mg IV NOW ONE Stop: 07/02/24 18:38 Last Admin: 07/02/24 18:50 Dose: 15 mg Documented By: CARLOTA Metronidazole (Metronidazole 500 Mg Tablet) 500 mg PO NOW ONE Stop: 07/02/24 21:29 Last Admin: 07/02/24 21:38 Dose: 500 mg Documented By: CARLOTA Ondansetron HCl (Ondansetron 4 Mg/2 Ml Inj) 4 mg IV NOW PRN PRN Reason: Nausea And Vomiting Ondansetron HCl (Ondansetron 4 Mg Odt) 4 mg PO NOW PRN PRN Reason: Nausea And Vomiting Ondansetron HCl (Ondansetron 4 Mg/2 Ml Inj) 4 mg IV NOW ONE Stop: 07/02/24 18:38 Last Admin: 07/02/24 18:49 Dose: 4 mg Documented By: CARLOTA Vital Signs Vital signs: Vital Signs - 8 hr 07/02/24 21:45 Pulse Rate 54 L Respiratory Rate 18 Blood Pressure 152/81 H Pulse Oximetry 99 Oxygen Delivery Method Room Air MDM - Abdominal Pain <Sara Edouard PA-C - Last Filed: 07/02/24 21:36> Medical Records Attestation: I reviewed the patient's medical records. Medical records narrative: 05/12/2022 ED visit for acute blood loss anemia Lab Data 07/02/24 13:54 07/02/24 13:54 Labs: Lab Results 07/02/24 07/02/24 Range/Units 13:54 14:04 WBC 9.9 (4.5-11.0) X10^3/uL RBC 4.97 (4.0-5.2) X10^6/uL Hgb 14.6 (12.0-16.0) g/dL Hct 44.0 (36-46) % MCV 88.6 (80-100) fL MCH 29.3 (26-34) PG MCHC 33.1 (30-36) % RDW 13.2 (11.6-14.8) % Plt Count 228 (150-400) X10^3/uL Neut % (Auto) 71.9 (50-75) % Lymph % (Auto) 18.9 L (25-40) % [place] % (Auto) 5.9 (3-14) % Eos % (Auto) 2.6 (2-4) % Baso % (Auto) 0.7 (0-2) % Neut # (Auto) 7100 H (7217-4919) /uL Lymph # (Auto) 1900 (3038-5636) /uL [place] # (Auto) 600 (0-900) /uL Eos # (Auto) 300 (0-450) /uL Baso # (Auto) 100 (0-100) /uL Sodium 137 (137-145) mmol/L Potassium 4.1 (3.4-5.1) mmol/L Chloride 103 (98-107) mmol/L Carbon Dioxide 24 (22-32) mmol/L BUN 11 (7-17) mg/dL Creatinine 0.78 (0.52-1.04) mg/dL Estimated GFR > 60 (>60) mL/min BUN/Creatinine Ratio 14.1 (6-22) Glucose 98 (70-100) mg/dL Calcium 9.3 (8.4-10.2) mg/dL Total Bilirubin 0.8 (0.2-1.3) mg/dL AST 29 (14-36) IU/L ALT 23 (<35) IU/L Alkaline Phosphatase 82 (38-126) U/L Total Protein 8.3 H (6.3-8.2) g/dL Albumin 4.5 (3.5-5.0) g/dL Globulin 3.8 (1.7-4.1) g/dL Albumin/Globulin Ratio 1.2 (1.0-2.8) Lipase 74 (23-300) U/L Urine RBC 0-1/hpf D (0-5/HPF) Urine WBC None seen (0-5/HPF) Ur Squamous Epith Cells None seen (0-5/HPF) Urine Bacteria Occasional (0-1) (None) Vol Urine Centrifuged 10ml (spun) Point of care testing: Point of Care Testing Test Results Negative Urine Dip Bedside Urine Glucose Negative Bedside Urine Bilirubin - Negative Bedside Urine Ketone - Negative Urine Specific [place] 1.020 Bedside Urine Occult Blood +/- Bedside Urine pH 6.0 Bedside Urine Protein - Negative Bedside Urine Urobilinogen - Negative Bedside Urine Nitrite - Negative Bedside Urine Leukocytes - Negative Esterase Imaging Data CT scan - abdomen/pelvis: Radiologist's Impression: PROCEDURE: CT ABDOMEN PELVIS W CON INDICATIONS: RLQ/R sided abd pain x 5 days TECHNIQUE: After the administration of intravenous contrast, axial sections acquired from the lung bases to the pubic symphysis. Coronal and sagittal reformats were performed. For radiation dose reduction, the following was used: automated exposure control, adjustment of mA and/or kV according to patient size. COMPARISON: None. FINDINGS: Image quality: Diagnostic. Lower Chest: No significant findings. ABDOMEN: Liver: No solid mass. Gallbladder: No radiopaque gallstones or wall thickening. Biliary ducts: No biliary dilation. Pancreas: Homogeneous enhancement without focal lesions or pancreatic ductal dilatation. No peripancreatic inflammation or organized fluid collections. Spleen: Size is within normal limits. Adrenal Glands: No adrenal nodules. Kidneys and Ureters: No hydronephrosis. No solid mass. No complex renal cystic lesion which requires follow up. Stomach and Bowel: Normal colonic caliber, without significant wall thickening. No evidence for small bowel obstruction or associated inflammatory changes. There appears to be wall thickening and inflammatory changes involving the terminal ileum and cecum. A definite inflamed or enlarged appendix is not identified. Peritoneum: No abnormal intraperitoneal fluid. No free air. Ventral Wall: No significant ventral hernia. Abdominal Nodes: No retroperitoneal or mesenteric adenopathy by size criteria. Vessels: Aorta and inferior vena cava are normal in size. PELVIS: Pelvic Organs: Unremarkable. Bladder: No bladder wall thickening, accounting for underdistention. Pelvic Nodes: No enlarged lymph nodes. Miscellaneous: No inguinal hernias are seen. Bones: No aggressive osseous abnormality. Visualized osseous structures appear intact without acute fracture or focal destructive lesion. No acute compression fractures of the imaged spine. IMPRESSION: Circumferential wall thickening and inflammatory changes of the terminal ileum and cecum identified. An enlarged/inflamed appendix is not visualized. Findings likely represent an infectious or inflammatory process with possible Crohn's disease given location of inflammatory changes. Recommend continued clinical surveillance and follow-up imaging as needed. Otherwise, no other acute abnormalities identified in the abdomen or pelvis. [facility] Narrative Medical decision making narrative: 34-year-old female with a past medical history of anemia who presents to the emergency department for right lower quadrant abdominal pain x5 days. Differential diagnosis includes but is not limited to appendicitis, cholecystitis, ovarian cyst, UTI, diverticulitis, intra-abdominal abscess, muscle strain, etc. On exam patient is in no acute distress, nontoxic appearing, vital signs appropriate except for mildly elevated blood pressure. She is tenderness to palpation of the right side of her abdomen, negative Hinkle's sign however. No peritoneal signs. Labs obtained in triage. We will treat with Toradol, fluids, Zofran and obtain CT abdomen pelvis with IV contrast. test negative. UA negative for infection. Labs reveal normal WBC count 9.9, hemoglobin 14.6, hematocrit 44.0. Platelets 228. Normal electrolytes, normal renal function with a BUN of 11 creatinine 0.78. Normal AST ALT. Lipase 74. CT reveals circumferential wall thickening and inflammatory changes of the terminal ileum and cecum identified. And a large less inflamed appendix is not visualized. Findings likely represent an infectious or inflammatory process with a possible Crohn's disease given location of inflammatory changes. Recommend continue clinical surveillance and follow up imaging is needed. Otherwise no acute abnormalities identified in the abdomen or pelvis. Discussed imaging findings with ED attending Dr. Goodman. We will cover patient for both infectious or inflammatory cause with prednisone x5 days and antibiotics x7 days. Patient is allergic to amoxicillin therefore we will treat with ciprofloxacin and Flagyl. Discussed black box warning of fluoroquinolones. She declines the need for opiate pain medications. Advised prompt follow up with GI/surgery for colonoscopy and PCP. She will call PCP office tomorrow morning. We discussed strict ED return precautions. Patient's pain is improved significantly she is feeling better. She is stable for discharge home. <Naomy Goodman, DO - Last Filed: 07/03/24 04:04> Lab Data Labs: Lab Results 07/02/24 07/02/24 Range/Units 13:54 14:04 WBC 9.9 (4.5-11.0) X10^3/uL RBC 4.97 (4.0-5.2) X10^6/uL Hgb 14.6 (12.0-16.0) g/dL Hct 44.0 (36-46) % MCV 88.6 (80-100) fL MCH 29.3 (26-34) PG MCHC 33.1 (30-36) % RDW 13.2 (11.6-14.8) % Plt Count 228 (150-400) X10^3/uL Neut % (Auto) 71.9 (50-75) % Lymph % (Auto) 18.9 L (25-40) % [place] % (Auto) 5.9 (3-14) % Eos % (Auto) 2.6 (2-4) % Baso % (Auto) 0.7 (0-2) % Neut # (Auto) 7100 H (4294-2532) /uL Lymph # (Auto) 1900 (6535-8304) /uL [place] # (Auto) 600 (0-900) /uL Eos # (Auto) 300 (0-450) /uL Baso # (Auto) 100 (0-100) /uL Sodium 137 (137-145) mmol/L Potassium 4.1 (3.4-5.1) mmol/L Chloride 103 (98-107) mmol/L Carbon Dioxide 24 (22-32) mmol/L BUN 11 (7-17) mg/dL Creatinine 0.78 (0.52-1.04) mg/dL Estimated GFR > 60 (>60) mL/min BUN/Creatinine Ratio 14.1 (6-22) Glucose 98 (70-100) mg/dL Calcium 9.3 (8.4-10.2) mg/dL Total Bilirubin 0.8 (0.2-1.3) mg/dL AST 29 (14-36) IU/L ALT 23 (<35) IU/L Alkaline Phosphatase 82 (38-126) U/L Total Protein 8.3 H (6.3-8.2) g/dL Albumin 4.5 (3.5-5.0) g/dL Globulin 3.8 (1.7-4.1) g/dL Albumin/Globulin Ratio 1.2 (1.0-2.8) Lipase 74 (23-300) U/L Urine RBC 0-1/hpf D (0-5/HPF) Urine WBC None seen (0-5/HPF) Ur Squamous Epith Cells None seen (0-5/HPF) Urine Bacteria Occasional (0-1) (None) Vol Urine Centrifuged 10ml (spun) Point of care testing: Point of Care Testing Test Results Negative Urine Dip Bedside Urine Glucose Negative Bedside Urine Bilirubin - Negative Bedside Urine Ketone - Negative Urine Specific [place] 1.020 Bedside Urine Occult Blood +/- Bedside Urine pH 6.0 Bedside Urine Protein - Negative Bedside Urine Urobilinogen - Negative Bedside Urine Nitrite - Negative Bedside Urine Leukocytes - Negative Esterase Discharge Plan Departure Patient Disposition: Home Clinical Impression: Disorder of cecum, Abdominal pain, RLQ Instructions: DI for Crohns Disease Activity Restrictions/Additional Instructions: Dear Ms. Orellana, Thank you for coming to the emergency department. Today your CT scan reveals thickening and inflammatory changes of the terminal ileum in the cecum. This is the end of your small bowel in the start of your large bowel. This could be to an infectious or an inflammatory process or possible Crohn's disease. We are treating with antibiotics and steroids. It is very important to follow up with your primary care doctor and to have a colonoscopy performed for further evaluation. You can call to schedule an appointment with [facility] at [phone] to schedule an appointment for a colonoscopy, or your primary care doctor may also refer you for colonoscopy. It is very important to complete the full course of antibiotics, rest, hydrate, use Tylenol if needed for pain and/or ibuprofen. Please be aware that steroids ibuprofen can upset the stomach so it is important to take these with food. Do not drink alcohol with these antibiotics as it will make you very sick. Ciprofloxacin as an antibiotic in the class of fluoroquinolones which have a black box warning for potential tendon injury. Please do not exercise lift weights run/strep while taking this antibiotic. Return to the ER if you develop any new or worsening symptoms, severe pain, fevers, persistent vomiting or any other concerns. Please follow up with your primary care doctor within the next 2-3 days for ER follow-up. (If you do not have a PCP you can call [phone]. ?to schedule an appointment with an [facility] Primary Care Provider) IF YOU DEVELOP ANY NEW OR WORSENING SYMPTOMS, RETURN TO THE ER! Please read the attached instructions, they highlight more specific treatments and interventions for you at home. Thank you for letting me participate in your care, Sara Edouard PA-C Prescriptions: New ciprofloxacin HCl [Cipro] 500 mg tablet 500 mg PO Q12H 7 Days Qty: 14 0RF metronidazole 500 mg tablet 500 mg PO BID 7 Days Qty: 14 0RF prednisone 20 mg tablet 40 mg PO DAILY 5 Days Qty: 10 0RF No Action albuterol sulfate 90 mcg/actuation HFA aerosol inhaler 2 puff inhalation Q4-6H PRN (Reason: shortness of breath or wheezing) Qty: 6.7 0RF letrozole 2.5 mg tablet 2.5 mg PO DAILY Qty: 5 2RF Referrals: Reena Felipe MD [Primary Care Provider] - Stand Alone Forms: Patient Portal/API/Survey ED Sign-out <Naomy Goodman DO - Last Filed: 07/03/24 04:04> Cosign ED Attending Yanira Attestation: I was available for consultation. I was made aware of patient discussed plan and agree with the plan. I never evaluated patient myself.
--- NOTE | 2024-07-02 18:37 | DI.CT.S_ITS ---
PROCEDURE: CT ABDOMEN PELVIS W CON INDICATIONS: RLQ/R sided abd pain x 5 days TECHNIQUE: After the administration of intravenous contrast, axial sections acquired from the lung bases to the pubic symphysis. Coronal and sagittal reformats were performed. For radiation dose reduction, the following was used: automated exposure control, adjustment of mA and/or kV according to patient size. COMPARISON: None. FINDINGS: Image quality: Diagnostic. Lower Chest: No significant findings. ABDOMEN: Liver: No solid mass. Gallbladder: No radiopaque gallstones or wall thickening. Biliary ducts: No biliary dilation. Pancreas: Homogeneous enhancement without focal lesions or pancreatic ductal dilatation. No peripancreatic inflammation or organized fluid collections. Spleen: Size is within normal limits. Adrenal Glands: No adrenal nodules. Kidneys and Ureters: No hydronephrosis. No solid mass. No complex renal cystic lesion which requires follow up. Stomach and Bowel: Normal colonic caliber, without significant wall thickening. No evidence for small bowel obstruction or associated inflammatory changes. There appears to be wall thickening and inflammatory changes involving the terminal ileum and cecum. A definite inflamed or enlarged appendix is not identified. Peritoneum: No abnormal intraperitoneal fluid. No free air. Ventral Wall: No significant ventral hernia. Abdominal Nodes: No retroperitoneal or mesenteric adenopathy by size criteria. Vessels: Aorta and inferior vena cava are normal in size. PELVIS: Pelvic Organs: Unremarkable. Bladder: No bladder wall thickening, accounting for underdistention. Pelvic Nodes: No enlarged lymph nodes. Miscellaneous: No inguinal hernias are seen. Bones: No aggressive osseous abnormality. Visualized osseous structures appear intact without acute fracture or focal destructive lesion. No acute compression fractures of the imaged spine. IMPRESSION: Circumferential wall thickening and inflammatory changes of the terminal ileum and cecum identified. An enlarged/inflamed appendix is not visualized. Findings likely represent an infectious or inflammatory process with possible Crohn's disease given location of inflammatory changes. Recommend continued clinical surveillance and follow-up imaging as needed. Otherwise, no other acute abnormalities identified in the abdomen or pelvis. Dictated by: Migel Luna M.D. on 07/02/2024 at 20:55 Approved by: Migel Luna M.D. on 07/02/2024 at 21:01
[2024-07-02] MEDS: ONDANSETRON 4 MG/2 ML INJ IV (18:49)
[2024-07-02] MEDS: SODIUM CHLORIDE 0.9% 1,000 ML 1000 ML IV (18:49)
[2024-07-02] MEDS: KETOROLAC 30 MG/ML VIAL 15 MG IV (18:50)
[2024-07-02] MEDS: metroNIDAZOLE 500 MG TABLET PO (21:38)
[2024-07-02] MEDS: CIPROFLOXACIN 250 MG TABLET 500 MG PO (21:38)
[2024-07-02 21:45] VITALS: BP 152/81; PULSE 54; RESP 18; O2SAT 99
== END 2024-07-02 21:46 | disposition home or self-care (01) ==
PROVIDERS: Emergency Medicine; Emergency Provider Physician Assistant; PCP Family Medicine
DX: R10.31 Right lower quadrant pain (principal); K63.9 Disease of intestine, unspecified
CPT/HCPCS: 36415; 74177; 80053; 81003; 81015; 81025; 83690; 85025; 87086; 96361; 96374; 96375; 99284; J1885; J2405; Q9967

== ENCOUNTER → 2024-07-07 12:53 | Outpatient (CLI) | payer OTHER, SELFPAY ==
[2022-05-12 03:41] VITALS: BMI 41.7
--- NOTE | 2024-07-13 12:43 | DIET.CONS ---
Addendum entered by Serenity Barger 07/13/24 13:27: consult date 07/07/24 Original Note: Dietary Consultation Note Assessment: 34 y F referred to dietitian for obesity Pt reports struggling with weight management. Wants to focus on sustainable dietary patterns and nourishing body in right way as well as lowering cholesterol levels. Reports weight gain since 2016. Labs: chol 250, HDL 63, TG normal LDL 171 on 06/12/24 Unable to exercise d/t joint pain. Going to PT. Notes creating a weekly schedule/meal plan would be very beneficial. Diet recall: B-bagel and cream cheese, coffee (vanilla latte) L-out to eat 3-4x/wk (pizza and salad, sandwich) or tuna sandwich D-homemade dinner, 4-6 oz chx, beef, fish, around 1 cup pasta/rice, 1 cup vegs Alcohol intake socially 24 oz yeti 4-8x/day 24 oz club soda sometimes regular soda Ht: 5 ft 6.75 in Wt:289 lb BMI: 45.6 Nutrition Diagnosis: Food and nutrition related knowledge deficit r/t limited previous formal nutrition educ aeb questions regarding dietary patterns and nutrition for elevated cholesterol Interventions: Discussed and provided handouts on the following -Balanced meals and snacks in line with myplate, Mediterranean style of eating -Portion sizing -Education on label reading -Intuitive eating principals/practice -Fiber, amounts, types -Fats, types, common foods high in saturated fats, labe reading -Lab values and correlation with nutrition -Brainstorming food and meal options Goals: -Eliminate sugary sodas/drinks, reducing sugar added in coffee drink (less pumps/sugar free) -Pair fiber and protein source with breakfast (i.e fruit/egg) -Label read for saturated fat at chain fast food places that have nutrition labels on website EER: 20 g or less SFA per day, 25-28 g fiber per day Monitoring/Evaluations: f/u in 3wks Electronically Signed by: Serenity Barger 07/13/24 12:43 Clinical Dietitian [address] [address]
== END ==
PROVIDERS: PCP Family Medicine; Referring Provider Family Medicine
DX: E66.9 Obesity, unspecified (principal); Z68.42 Body mass index [BMI] 45.0-49.9, adult; Z71.3 Dietary counseling and surveillance
CPT/HCPCS: 97802

== ENCOUNTER → 2024-08-04 11:58 | Outpatient (CLI) | payer OTHER, SELFPAY ==
[2022-05-12 03:41] VITALS: BMI 41.7
--- NOTE | 2024-08-04 12:00 | DI.CT.S_ITS ---
PROCEDURE: CT ABDOMEN PELVIS W CON INDICATIONS: Colitis TECHNIQUE: After the administration of intravenous contrast, axial sections acquired from the lung bases to the pubic symphysis. Coronal and sagittal reformats were performed. For radiation dose reduction, the following was used: automated exposure control, adjustment of mA and/or kV according to patient size. COMPARISON: [facility], CT, CT ABDOMEN PELVIS W CON, 07/02/2024, 19:55. FINDINGS: Image quality: Diagnostic. Peritoneum: No pneumoperitoneum or ascites. Minimal fat stranding along the right paracolic gutter (3/51). Bones: No acute osseous abnormality. Lower Chest: No acute abnormality. Liver: Normal in size and contour. Gallbladder: No stones or pericholecystic fluid. Contracted appearance. Biliary tree: No intrahepatic or extrahepatic biliary ductal dilatation. Pancreas: Within normal limits. Spleen: Normal in size and contour. Kidneys: No hydronephrosis or obstructive urolithiasis. Adrenals: No adrenal nodularity. Bladder: Normal in size and wall thickness. : Anteverted uterus. No abnormal adnexal masses. Stomach: Normal in size and contour. Bowel: Normal in diameter without any bowel obstruction. Scattered colonic diverticulosis. Retrocecal, nondilated appendix with a trace fluid along the inferior right paracolic gutter (2/103-124). No appendecoliths. Oral contrast only within the stomach. Mild submucosal fatty infiltration of the cecum, which is a nonspecific finding and can be seen in the setting of obesity, chronic inflammation, inflammatory bowel disease, status post cytoreductive therapy and other etiologies. Lymph Nodes: No retroperitoneal, mesenteric, or inguinal lymphadenopathy by size criteria, although a few right lower quadrant mesenteric nodes are present (3/55). Vascular: No abdominal aortic aneurysm. The visualized arterial vasculature is patent. Left anterior accessory saphenous varicose vein (2/151-188). Soft Tissues: No acute abnormality. IMPRESSION: 1. Nondilated appearance of the appendix with trace fluid near the tip. In conjunction with the prior exam, these findings likely represent prior resolving, uncomplicated appendicitis. No drainable abscess. 2. No other acute CT abnormality of the abdomen/pelvis. Dictated by: Warner Chavarria M.D. on 08/04/2024 at 13:29 Approved by: Warner Chavarria M.D. on 08/04/2024 at 14:34
== END ==
LOC: CT 11:59
PROVIDERS: PCP Family Medicine; Referring Provider Family Medicine; Visit Provider Family Medicine
DX: K52.9 Noninfective gastroenteritis and colitis, unspecified (principal); K57.90 Diverticulosis of intestine, part unspecified, without perforation or abscess without bleeding
CPT/HCPCS: 74177; Q9967

== ENCOUNTER → 2024-08-12 12:48 | Outpatient (CLI) | payer OTHER, SELFPAY ==
[2022-05-12 03:41] VITALS: BMI 41.7
[2024-08-12 15:53] LABS: Progesterone, Total 6.89 ng/mL
== END ==
PROVIDERS: PCP Family Medicine; Referring Provider Obstetrics & Gynecology; Visit Provider Obstetrics & Gynecology
DX: N97.0 Female infertility associated with anovulation (principal)
CPT/HCPCS: 36415; 84144

== ENCOUNTER 2024-12-28 19:08 | Observation (INO) | payer OTHER, SELFPAY ==
[2022-05-12 03:41] VITALS: BMI 41.7
[2024-12-28 19:36] VITALS: BP 179/83; PULSE 87; RESP 20; TEMP 37; O2SAT 99; BMI 44.6
[2024-12-28 20:14] LABS: Add Manual Diff / Slide Review NO; Hematocrit 39.7 % (36-46); Hemoglobin 13.3 g/dL (12.0-16.0); Lymphocytes Absolute Auto 1900 /uL (1100-4500); Mean Corpuscular HGB Conc 33.6 % (30-36); Mean Corpuscular Hemoglobin 29.0 PG (26-34); Mean Corpuscular Volume 86.5 fL (80-100); Platelet Count 248 X10^3/uL (150-400)
[2024-12-28 20:15] LABS: Alanine Aminotransferase 25 IU/L (<35); Albumin 4.4 g/dL (3.5-5.0); Albumin Globulin Ratio 1.2 (1.0-2.8); Alkaline Phosphatase 74 U/L (38-126); Blood Urea Nitrogen 9 mg/dL (7-17); Calcium 8.9 mg/dL (8.4-10.2); Carbon Dioxide 28 mmol/L (22-32); Chloride 102 mmol/L (98-107); Estimated Glomerular Filt Rate > 60 mL/min (>60); Globulin 3.6 g/dL (1.7-4.1); Glucose 105 mg/dL (70-99); HEMOLYSIS < 15 (0-50); Lipase 47 U/L (23-300); Potassium 4.0 mmol/L (3.4-5.1); Sodium 135 mmol/L (137-145); Total Protein 8.0 g/dL (6.3-8.2)
[2024-12-28 22:06] LABS: Ictotest Urine Negative (Negative)
[2024-12-28 22:07] LABS: Culture Indicated Urine Cult Not Indicated
--- NOTE | 2024-12-28 22:17 | DI.CT.S_ITS ---
PROCEDURE: CT ABDOMEN PELVIS W CON INDICATIONS: RLQ Px, >24hours TECHNIQUE: After the administration of intravenous contrast, axial sections acquired from the lung bases to the pubic symphysis. Coronal and sagittal reformats were performed. For radiation dose reduction, the following was used: automated exposure control, adjustment of mA and/or kV according to patient size. COMPARISON: [facility], CT, CT ABDOMEN PELVIS W CON, 08/04/2024, 13:16. FINDINGS: Image quality: Diagnostic. Lower Chest: No significant findings. ABDOMEN: Liver: No solid mass. Gallbladder: No radiopaque gallstones or wall thickening. Biliary ducts: No biliary dilation. Pancreas: No ductal dilation. Spleen: Size is within normal limits. Adrenal Glands: No adrenal nodules. Kidneys and Ureters: No hydronephrosis. No solid mass. No complex renal cystic lesion which requires follow up. Stomach and Bowel: Normal colonic caliber, without significant wall thickening. Dilated appendix in the right lower quadrant measuring up to 1.8 cm with surrounding fat stranding and edema consistent with acute appendicitis. Inflammatory changes extend to the right pericolic gutter. No organized or drainable fluid collections. Peritoneum: No abnormal intraperitoneal fluid. No free air. Ventral Wall: No significant ventral hernia. Abdominal Nodes: No retroperitoneal or mesenteric adenopathy by size criteria. Vessels: Aorta and inferior vena cava are normal in size. PELVIS: Pelvic Organs: Unremarkable. Bladder: No bladder wall thickening, accounting for underdistention. Pelvic Nodes: No enlarged lymph nodes. Miscellaneous: No inguinal hernias are seen. Bones: No aggressive osseous abnormality. IMPRESSION: Acute appendicitis with surrounding phlegmonous/edematous changes in the right lower quadrant. No free air to suggest perforation. No organized or drainable fluid collection. Approved by: Nikki Charles M.D.,Ph.D. on 12/28/2024 at 23:00
[2024-12-28] MEDS: SODIUM CHLORIDE 0.9% 1,000 ML 1000 ML IV (22:31)
[2024-12-28] MEDS: ONDANSETRON 4 MG/2 ML INJ IV (22:31)
--- NOTE | 2024-12-28 23:26 | ED.ABDPAIN ---
HPI - Abdominal Pain General Chief Complaint: Abdominal Pain Stated Complaint: sharp consistent rt abd pain Time Seen by Provider: 12/28/24 19:50 Source: patient Mode of arrival: Ambulatory History of Present Illness HPI narrative: 34-year-old female with history of morbid obesity (recent BMI 44), has history of prior D&C but no other abdominopelvic surgeries, complains of right-sided abdominal pain since 8:00 p.m. the previous night, somewhat sharp. No nausea or vomiting or diarrhea. No painful or frequent urination. No recent exposure to antibiotics. She does not take blood thinner medications. Denies painful or frequent urination. No black or red or loose stools. No injury or trauma new activities. MD complaint: abdominal pain Related Data Previous Rx's ?Medication ?Instructions ?Recorded albuterol sulfate 90 mcg/actuation 2 puff inhalation Q4-6H PRN 11/24/22 aerosol inhaler shortness of breath or wheezing #6.7 grams letrozole 2.5 mg tablet 5 mg (2 x 2.5 mg) PO DAILY #30 tabs 11/17/24 Allergies Allergy/AdvReac Type Severity Reaction Status Date / Time amoxicillin (AMOXICILLIN) Allergy Intermediate Rash Verified 12/28/24 19:37 Penicillins (PENICILLINS) Allergy Intermediate Severe rash Verified 12/28/24 19:37 Patient History Medical History Depression (~2010) Anxiety (~2010) Chicken pox (~1995) Morbid obesity with BMI of 40.0-44.9, adult Surgical History H/O dilation and curettage Status post bunionectomy History of third molar tooth extraction Social History household members: spouse and children Smoking Status: Never smoker second hand exposure: Yes alcohol intake: current substance use type: does not use Smoking Status: Never smoker alcohol intake frequency: a few times a week Exam Narrative Exam Narrative: GENERAL: Well-developed patient, in mild distress. HEAD: Atraumatic. Normocephalic. EYES: Pupils equal round and reactive. Extraocular motions intact. No scleral icterus. No injection or drainage. ENT: Nose without bleeding, purulent drainage. Throat without erythema, tonsillar hypertrophy or exudate. Airway patent. NECK: Trachea midline. Normal range of motion neck. CARDIOVASCULAR: Regular rate and rhythm without murmurs, gallops, or rubs. RESPIRATORY: Clear to auscultation. Breath sounds equal bilaterally. No wheezes, rales, or rhonchi. GASTROINTESTINAL: Obese, tender in her right lower quadrant, nondistended, no involuntary guarding, nonrigid. Bowel tones somewhat slowed, without rushes or tinkles. EXTREMITIES: No edema or joint tenderness. BACK: Nontender without deformity or crepitance. No flank tenderness. NEURO: AOx3. Motor functions grossly nonfocal. SKIN: No rash or erythema of visible areas Initial Vital Signs Initial Vital Signs: Vital Signs Temperature 98.6 F 12/28/24 19:36 Pulse Rate 87 12/28/24 19:36 Respiratory Rate 20 12/28/24 19:36 Blood Pressure 179/83 H 12/28/24 19:36 Pulse Oximetry 99 12/28/24 19:36 Oxygen Delivery Method Room Air 12/28/24 19:36 Course Orders Ordered: ED Orders 12/28/24 21:35 Ictotest Urine Stat Urine Culture Stat Urine Microscopic Stat 12/28/24 22:17 CT abdomen pelvis w con Stat 12/28/24 23:51 Consult to General Surgery Urgent Sodium Chloride (Normal Saline 0.9%) 1,000 mls @ 125 mls/hr IV CONT DOREEN Last Admin: 12/29/24 01:14 Dose: 125 mls/hr Documented By: PENG Ciprofloxacin (Cipro) 400 mg in 200 mls @ 200 mls/hr IV Q12H DOREEN Metronidazole (Flagyl) 500 mg in 100 mls @ 100 mls/hr IV Q8H DOREEN Morphine Sulfate (Morphine 2 Mg/Ml Inj) 2 mg IV Q4HR PRN PRN Reason: abdominal pain Last Admin: 12/29/24 01:15 Dose: 2 mg Documented By: PENG Ondansetron HCl (Ondansetron 4 Mg/2 Ml Inj) 4 mg IV Q4HR PRN PRN Reason: Nausea And Vomiting Discontinued Medications Hydromorphone HCl (Hydromorphone Hcl 0.5 Mg/0.5 Ml Syringe) 0.5 mg IV NOW ONE Stop: 12/28/24 22:18 Last Admin: 12/28/24 22:30 Dose: 0.5 mg Documented By: HIRAM Sodium Chloride (Normal Saline 0.9%) 1,000 mls @ 1,000 mls/hr IV BOLUS ONE Stop: 12/28/24 23:16 Last Infusion: 12/29/24 01:34 Dose: Infused Documented By: Admin: 12/28/24 22:31 Dose: 1,000 mls/hr Documented By: HIRAM Ciprofloxacin (Cipro) 400 mg in 200 mls @ 200 mls/hr IV NOW ONE Stop: 12/29/24 00:25 Last Infusion: 12/29/24 02:40 Dose: Infused Documented By: Admin: 12/29/24 01:14 Dose: 200 mls/hr Documented By: PENG Metronidazole (Flagyl) 500 mg in 100 mls @ 100 mls/hr IV NOW ONE Stop: 12/29/24 00:25 Last Infusion: 12/29/24 01:34 Dose: Infused Documented By: Infusion: 12/29/24 00:30 Dose: 0 mls/hr Documented By: Admin: 12/28/24 23:46 Dose: 100 mls/hr Documented By: AAKASH Lactated Ringer's (Lactated Ringers) 1,000 mls @ 1,000 mls/hr IV BOLUS ONE Stop: 12/29/24 00:25 Last Infusion: 12/29/24 01:33 Dose: Infused Documented By: Infusion: 12/29/24 00:30 Dose: 0 mls/hr Documented By: Admin: 12/28/24 23:46 Dose: 1,000 mls/hr Documented By: AAKASH Ciprofloxacin (Cipro) 400 mg in 200 mls @ 200 mls/hr IV Q12H DOREEN Stop: 12/28/24 23:55 Last Admin: 12/29/24 01:33 Dose: Not Given Documented By: PENG Metronidazole (Flagyl) 500 mg in 100 mls @ 100 mls/hr IV Q8H [facility] Ondansetron HCl (Ondansetron 4 Mg/2 Ml Inj) 4 mg IV NOW PRN PRN Reason: Nausea And Vomiting Last Admin: 12/28/24 22:31 Dose: 4 mg Documented By: HIRAM Ondansetron HCl (Ondansetron 4 Mg Odt) 4 mg PO NOW PRN PRN Reason: Nausea And Vomiting Vital Signs Vital signs: Vital Signs - 8 hr 12/28/24 19:36 Temperature 98.6 F Pulse Rate 87 Respiratory Rate 20 Blood Pressure 179/83 H Pulse Oximetry 99 Oxygen Delivery Method Room Air MDM - Abdominal Pain Lab Data Attestation: I reviewed the patient's lab results. Lab results narrative: White blood cell count 55668, hemoglobin 13.3, platelets adequate. Glucose 105. Normal renal function, serum CO2, potassium. Sodium 135 slightly low. Liver functions and lipase normal. Urinalysis negative. Urine hCG negative. 12/28/24 19:53 12/28/24 19:53 Labs: Lab Results 12/28/24 12/28/24 Range/Units 19:53 21:35 WBC 12.5 H (4.5-11.0) X10^3/uL RBC 4.59 (4.0-5.2) X10^6/uL Hgb 13.3 (12.0-16.0) g/dL Hct 39.7 (36-46) % MCV 86.5 (80-100) fL MCH 29.0 (26-34) PG MCHC 33.6 (30-36) % RDW 13.4 (11.6-14.8) % Plt Count 248 (150-400) X10^3/uL Neut % (Auto) 75.2 H (50-75) % Lymph % (Auto) 15.1 L (25-40) % [place] % (Auto) 5.9 (3-14) % Eos % (Auto) 3.3 (2-4) % Baso % (Auto) 0.5 (0-2) % Neut # (Auto) 9400 H (5097-6078) /uL Lymph # (Auto) 1900 (4713-8120) /uL [place] # (Auto) 700 (0-900) /uL Eos # (Auto) 400 (0-450) /uL Baso # (Auto) 100 (0-100) /uL Sodium 135 L (137-145) mmol/L Potassium 4.0 (3.4-5.1) mmol/L Chloride 102 (98-107) mmol/L Carbon Dioxide 28 (22-32) mmol/L BUN 9 (7-17) mg/dL Creatinine 0.82 (0.52-1.04) mg/dL Estimated GFR > 60 (>60) mL/min BUN/Creatinine Ratio 11.0 (6-22) Glucose 105 H (70-99) mg/dL Calcium 8.9 (8.4-10.2) mg/dL Total Bilirubin 0.7 (0.2-1.3) mg/dL AST 26 (14-36) IU/L ALT 25 (<35) IU/L Alkaline Phosphatase 74 (38-126) U/L Total Protein 8.0 (6.3-8.2) g/dL Albumin 4.4 (3.5-5.0) g/dL Globulin 3.6 (1.7-4.1) g/dL Albumin/Globulin Ratio 1.2 (1.0-2.8) Lipase 47 (23-300) U/L Ur Bilirubin Confirm Negative (Negative) Urine RBC 1-5/hpf (0-5/HPF) Urine WBC 0-1/hpf (0-5/HPF) Ur Squamous Epith Cells 0-1 /hpf (0-5/HPF) Urine Bacteria Few (2-10) H (None) Ur Culture Indicated? Cult not indicated Vol Urine Centrifuged 10ml (spun) Point of care testing: Point of Care Testing Test Results Negative Urine Dip Bedside Urine Glucose Negative Bedside Urine Bilirubin + 1 Bedside Urine Ketone - Negative Urine Specific Ridge 1.025 Bedside Urine Occult Blood +++ Bedside Urine pH 6.0 Bedside Urine Protein +/- 15 Bedside Urine Urobilinogen - Negative Bedside Urine Nitrite - Negative Bedside Urine Leukocytes +/- [address] scan - abdomen/pelvis: Radiologist's Impression: [place] [address] CT Scan Report Signed Patient: Socorro Orellana MR#: [id number] : 1990 Acct:[id number] Age/Sex: 34 / F Date of Service: 12/28/24 Loc: ED Accession Number: [id number] Procedure: CT abdomen pelvis w con Ordering Provider: Era Saldana MD PROCEDURE: CT ABDOMEN PELVIS W CON INDICATIONS: RLQ Px, >24hours TECHNIQUE: After the administration of intravenous contrast, axial sections acquired from the lung bases to the pubic symphysis. Coronal and sagittal reformats were performed. For radiation dose reduction, the following was used: automated exposure control, adjustment of mA and/or kV according to patient size. COMPARISON: [facility], CT, CT ABDOMEN PELVIS W CON, 08/04/2024, 13:16. FINDINGS: Image quality: Diagnostic. Lower Chest: No significant findings. ABDOMEN: Liver: No solid mass. Gallbladder: No radiopaque gallstones or wall thickening. Biliary ducts: No biliary dilation. Pancreas: No ductal dilation. Spleen: Size is within normal limits. Adrenal Glands: No adrenal nodules. Kidneys and Ureters: No hydronephrosis. No solid mass. No complex renal cystic lesion which requires follow up. Stomach and Bowel: Normal colonic caliber, without significant wall thickening. Dilated appendix in the right lower quadrant measuring up to 1.8 cm with surrounding fat stranding and edema consistent with acute appendicitis. Inflammatory changes extend to the right pericolic gutter. No organized or drainable fluid collections. Peritoneum: No abnormal intraperitoneal fluid. No free air. Ventral Wall: No significant ventral hernia. Abdominal Nodes: No retroperitoneal or mesenteric adenopathy by size criteria. Vessels: Aorta and inferior vena cava are normal in size. PELVIS: Pelvic Organs: Unremarkable. Bladder: No bladder wall thickening, accounting for underdistention. Pelvic Nodes: No enlarged lymph nodes. Miscellaneous: No inguinal hernias are seen. Bones: No aggressive osseous abnormality. IMPRESSION: Acute appendicitis with surrounding phlegmonous/edematous changes in the right lower quadrant. No free air to suggest perforation. No organized or drainable fluid collection. Approved by: Nikki Charles M.D.,Ph.D. on 12/28/2024 at 23:00 [facility] Narrative Medical decision making narrative: 34-year-old female with history of morbid obesity, BMI 44, right lower quadrant pain since 8:00 p.m. yesterday, nontraumatic, worsening pain through the day today. Afebrile. Tenderness right lower quadrant. No guarding. DDx consider acute appendicitis, colitis, diverticulitis, UTI, ureteral stone, PID, ovarian torsion, ovarian cysts/rupture, mesenteric adenitis, ectopic , other. Lab data: White blood cell count 66414, hemoglobin 13.3, platelets adequate. Glucose 105. Normal renal function, serum CO2, potassium. Sodium 135 slightly low. Liver functions and lipase normal. Urinalysis negative. Urine hCG negative. CT abdomen and pelvis. IMPRESSION: Acute appendicitis with surrounding phlegmonous/edematous changes in the right lower quadrant. No free air to suggest perforation. No organized or drainable fluid collection. See radiology report. History of penicillin and amoxicillin associated severe rash. We will give IV ciprofloxacin and IV Flagyl. 235, case discussed with general surgery Dr. Eid who requests admission, requests bridging orders, keep NPO, time of surgery 0600 Bridging admit orders entered. Critical Care Time Critical Care Time Critical Care Time: Yes Total Critical Care Time: 35 Attestation: The high probability of a clinically significant, sudden or life threatening deterioration of the [abdominopelvic, genitourinary, gastrointestinal] system(s) required my full and direct attention, intervention and personal management. The aggregate critical care time was [35] minutes. This time is in addition to time spent performing reported procedures but includes the following: [x] Data Review and interpretation [x] Patient assessment and monitoring of vital signs [x] Documentation [x] Medication orders and management Discharge Plan Departure Patient Disposition: Admitted As Inpatient Clinical Impression: Appendicitis Admit Date/Time: 12/28/24 23:56 Admit Provider: Jerry Eid
[2024-12-28] MEDS: metroNIDAZOLE 500 MG/100 ML PIGGYBACK 100 MG IV (23:46)
[2024-12-28] MEDS: LACTATED RINGERS 1,000 ML 1000 ML IV (23:46)
[2024-12-29] VITALS (14 sets, daily range): BP systolic 105–136; BP diastolic 57–90; PULSE 66–90; RESP 12–18; TEMP 36–37.3; O2SAT 90–100; BMI 44.6
--- NOTE | 2024-12-29 | PATH_ITS ---
[facility] Accession Number: [id number] . 01 Material submitted: . appendix - APPENDIX . 01 Diagnosis: APPENDIX, APPENDECTOMY: Low-grade appendiceal mucinous neoplasm (LAMN), involves proximal appendiceal margin. Background acellular mucin pools. No invasive tumor identified. Please see comment. . MRV 01/07/2025 0841 Local . 01 Comment: Low grade appendiceal mucinous neoplasm (LAMN) is present at the appendiceal margin. The acellular mucin pools are patchy and involve the region of appendiceal rupture. No invasive adenocarcinoma is identified (specimen entirely submitted). One benign para-appendiceal lymph node present. Fibrous obliteration of the appendiceal tip and mild acute appendicitis is present. . This case is also reviewed by Dr. Steven Moss, who agrees with the interpretation. . Dr. Lucila German discussed results with Dr. Jerry Eid on 01-06-25 at approximately 3:33 p.m. . 01 Electronically signed: . Lucila German MD, Pathologist NPI- [id number] . 01 Gross description: . Received in formalin with two identifiers and appendix, is a ragged appendix 5.7 cm in length by 1.6 cm in average diameter and mesoappendix extending up to 1.9 cm. The serosa is hernadez and diffusely ragged with tenacious cloudy mucoid material adherent to the surface across an area measuring 5.1 x 3.1 cm. The stapled margin is inked blue while the external surface of the specimen is inked orange. The lumen is patent and focally dilated near the margin with a presumed perforation tunneling into the adipose paralleling the reamining intact appendix and connecting to the aforementioned ragged mucoid serosal disruption. The remaining appendix do average 0.3 cm thick with no additional lesions identified. Agricultural Production [employer] sections are submitted as follows: A1: Margin and entire bisected distal tip. A2-A3: Presumed perforation. A4: Cross-section of appendix with mucosal mucoid defect. ([id number]) . . The remaining appendix is submitted in cassettes A5-A10. ([id number]) /BRAULIO 01/05/2025 [facility] Local . 01 Pathologist provided ICD-10: D37.3 . 01 CPT . 992454 Performed at: [address] [id number] MD Samuel Kothari MD Phone: [phone]
--- NOTE | 2024-12-29 00:30 | PC.NURSE ---
fluids and antibiotic continued upon transfer to floor
[2024-12-29] MEDS: SODIUM CHLORIDE 0.9% 1,000 ML 125 ML IV ×3 (01:14→22:55)
[2024-12-29] MEDS: CIPROFLOXACIN 400 MG/200 ML PIGGYBACK 200 MG IV ×3 (01:14→23:00)
[2024-12-29] MEDS: MORPHINE 2 MG/ML INJ IV (01:15)
--- NOTE | 2024-12-29 05:48 | PM.HP.IH.1 ---
History of Present Illness History of Present Illness Date Patient Seen: 12/29/24 Time Patient Seen: 05:48 Chief complaint: sharp consistent rt abd pain Narrative: Patient admitted through ED last night with acute appendicitis. CT demonstrates: Dilated appendix in the right lower quadrant measuring up to 1.8 cm with surrounding fat stranding and edema consistent with acute appendicitis. Inflammatory changes extend to the right pericolic gutter. No organized or drainable fluid collections. From ED HPI: 34-year-old female with history of morbid obesity (recent BMI 44), has history of prior D&C but no other abdominopelvic surgeries, complains of right-sided abdominal pain since 8:00 p.m. the previous night, somewhat sharp. No nausea or vomiting or diarrhea. No painful or frequent urination. No recent exposure to antibiotics. She does not take blood thinner medications. Denies painful or frequent urination. No black or red or loose stools. No injury or trauma new activities. [facility] Medical History Depression (~2010) Anxiety (~2010) Chicken pox (~1995) Morbid obesity with BMI of 40.0-44.9, adult Surgical History H/O dilation and curettage Status post bunionectomy History of third molar tooth extraction Social History household members: spouse and children Smoking Status: Never smoker second hand exposure: Yes alcohol intake: current substance use type: does not use Meds Home Medications and Allergies Home Medications ?Medication ?Instructions ?Recorded ?Confirmed ?Type albuterol sulfate 90 mcg/actuation 2 puff inhalation Q4-6H PRN 11/24/22 09/22/24 Rx aerosol inhaler shortness of breath or wheezing #6.7 grams letrozole 2.5 mg tablet 5 mg (2 x 2.5 mg) PO DAILY #30 tabs 11/17/24 Rx Allergies Allergy/AdvReac Type Severity Reaction Status Date / Time amoxicillin (AMOXICILLIN) Allergy Intermediate Rash Verified 12/28/24 19:37 Penicillins (PENICILLINS) Allergy Intermediate Severe rash Verified 12/28/24 19:37 Exam Vital Signs (past 8 hours): - 12/29/24 00:06 12/29/24 00:40 Temperature 97.1 F L Pulse Rate 84 77 Respiratory Rate 18 18 Blood Pressure 118/70 136/72 Pulse Oximetry 100 99 Oxygen Delivery Method Room Air Oxygen Flow Rate 0 Oxygen Delivery Method Room Air Oxygen Flow Rate 0 Const General: comfortable Orientation: alert and oriented x3 Resp Effort & Inspection: normal respiratory effort and able to speak in complete sentences Cardio Rate: regular rate GI Other: ABD: +RLQ tenderness Extrem General: no pedal edema and no calf tenderness Objective Labs 12/28/24 19:53 12/28/24 19:53 Labs: Laboratory Results - last 24 hr 12/28/24 12/28/24 19:53 21:35 WBC 12.5 H RBC 4.59 Hgb 13.3 Hct 39.7 MCV 86.5 MCH 29.0 MCHC 33.6 RDW 13.4 Plt Count 248 Neut % (Auto) 75.2 H Lymph % (Auto) 15.1 L [place] % (Auto) 5.9 Eos % (Auto) 3.3 Baso % (Auto) 0.5 Neut # (Auto) 9400 H Lymph # (Auto) 1900 [place] # (Auto) 700 Eos # (Auto) 400 Baso # (Auto) 100 Sodium 135 L Potassium 4.0 Chloride 102 Carbon Dioxide 28 BUN 9 Creatinine 0.82 Estimated GFR > 60 BUN/Creatinine Ratio 11.0 Glucose 105 H Calcium 8.9 Total Bilirubin 0.7 AST 26 ALT 25 Alkaline Phosphatase 74 Total Protein 8.0 Albumin 4.4 Globulin 3.6 Albumin/Globulin Ratio 1.2 Lipase 47 Ur Bilirubin Confirm Negative Urine RBC 1-5/hpf Urine WBC 0-1/hpf Ur Squamous Epith Cells 0-1 /hpf Urine Bacteria Few (2-10) H Ur Culture Indicated? Cult not indicated Vol Urine Centrifuged 10ml (spun) Assessment & Plan Assessment and plan (1) Acute appendicitis: Qualifiers: Acute appendicitis type: with localized peritonitis Appendicitis gangrene presence: unspecified whether gangrene present Appendicitis perforation presence: without perforation Appendicitis abscess presence: unspecified whether abscess present Qualified Code(s): K35.30 - Acute appendicitis with localized peritonitis, without perforation or gangrene Status: Acute Plan Prior CT with appendix in retrocecal location. CT with phlegmon/inflammation. Higher risk for open surgery, colon resection, drain, abscess. The risks, benefits and options regarding the procedure were explained to the patient in detail. Risk discussion included but not limited to: infection, bleeding, colon resection, drain, abscess. The patient was encouraged to ask questions and they were answered to their satisfaction. The patient understands and is agreeable to proceed. Time-Based Coding :: [TOTAL MINUTES] spent with patient and on the chart (including review of chart, obtaining history, exam, reviewing outside data, placing orders, documenting exam and treatment plan, and counseling patient) on [DATE]. PROFEE [employer]omimist Document charge(s): Yes Charge Codes Initial inpatient/observation care: [id number]
[2024-12-29] MEDS: ACETAMINOPHEN IV 1,000 MG/100 ML VIAL 400 MG IV (06:24)
[2024-12-29] MEDS: LACTATED RINGERS 1,000 ML 42 ML IV (06:24)
[2024-12-29] MEDS: SCOPOLAMINE 1 PATCH TOP (06:24)
[2024-12-29] MEDS: HEPARIN 5,000 UNIT/ML VIAL 7500 UNIT SUBCUT (06:29)
[2024-12-29] MEDS: metroNIDAZOLE 500 MG/100 ML PIGGYBACK 100 MG IV ×2 (06:51→17:26)
--- NOTE | 2024-12-29 06:56 | SUR.OPER ---
Supine on padded OR bed, head on pillow, arms padded and left arm tucked at side, right arm extended 90 degrees on arm board, legs uncrossed, safety belt at thigh, tape over blanket over lower legs .
[2024-12-29] MEDS: BUPivacaine 0.25% W/ EPI (PF) 30 ML VIAL 60 ML INJ (07:10)
--- NOTE | 2024-12-29 07:52 | P.OP_ITS ---
Operative Date/Time/Diagnoses Date of procedure: 12/29/24 Time of procedure: 07:52 Pre-op diagnosis: Acute appendicitis Post-op diagnosis: same Procedure & Clinicians Procedure: Laparoscopic appendectomy, RLQ Red channel drain Same procedure(s) as scheduled: Yes Indications: 34[address] proven acute appendicitis Surgeon: Jerry Eid Assisted?: No Anesthesia Type: General Operative Notes Findings: Severely inflamed appendix, purulent fluid in pelvis and RLQ, no evidence for duncan perforation, adherent to TI, retrocecal Closure Type: primary Specimen(s): other (appendix ) Applied: drain(s) (RLQ 15 Fr Red Channel drain) Estimated Blood Loss (mL): 30 Blood products transfused: none Procedure in detail: After informed consent and satisfactory general endotracheal anesthesia, the abdomen was prepped and draped in the usual sterile manner. The patient voided in the preoperative holding area to avoid Blanton catheter. The patient received appropriate antibiotics and DVT prophylaxis. The pneumoperitoneum was esta blished using the direct cutdown technique via an infraumbilical incision. An 0 Vicryl [id number] suture was placed in the umbilical fascia. The camera was inserted and we used the 5 mm 30 degree lens and no trauma secondary to the trocar insertion was noted. The 5 mm suprapubic and 5 mm left lower quadrant trocars were inserted under direct vision. Bilateral laparoscopic TAP blocks were performed by injecting 25 cc of 0.25% Marcaine with epinephrine into the transversus abdominis muscle bilaterally. An additional 10 cc of local was used in the skin for a total of 60 cc. The patient was placed in Trendelenburg, right side up position. The patient was noted to have purulent fluid in the pelvis and right lower quadrant. This was all suctioned dry. Incidental note was made of a small leiomyoma on the anterior surface of the mid body of the uterus. The uterus was noted to be enlarged consistent with active menses. The appendix was noted to be acutely inflamed. The terminal ileum was adherent to the anterior abdominal wall and this was easily with the suction tip. The appendix was noted to be in a retrocecal position. It was adherent to the abdominal sidewall and the retroperitoneum and the cecum. This was delivered carefully using the suction as a blunt dissector. We are able to mobilize the terminal ileum fat pad off of the appendix. We were able to window the appendix at the base of the cecum. Everything was severely inflamed. This required the laparoscopic Endo-LIN stapling instrument with a blue load to control the appendiceal stump but it controlled this confidently. The mesoappendix was controlled using the LigaSure energy device with excellent hemostasis. There was no feculent drainage. I irrigated the right lower quadrant and pelvis both anterior and posterior to the uterus with copious amounts of sterile saline and this was all suctioned dry. I did leave a 15 [place] Red channel drain that entered the suprapubic trocar location and coursed through the pelvis and into the right lower quadrant to help minimize the risk for postoperative abscess. We will keep her on intravenous antibiotics postoperatively. The drain was secured to the skin with a 2-0 nylon interrupted suture. The appendix was placed into an endo-pouch and removed. The right lower quadrant was inspected for hemostasis and no bleeding was noted. It cleaned up quite nicely with irrigation. The drain was noted to be in perfect position. The pneumoperitoneum was released. The trocars were removed and there was no bleeding noted at the trocar sites. The 0 Vicryl [id number] suture in the umbilical fascia was tied and there were no palpable fascial defects. The remaining local was injected into the fascia and musculature. The subcutaneous tissues were irrigated with Betadine solution to minimize the risk for infection. The skin incisions were closed using 4-0 Monocryl in a subcuticular manner. Dermabond glue was applied as a final dressing. A drain dressing was applied to the drain exit site. The estimated blood loss was minimal. The instrument sponge and needle counts were all correct x2. The patient tolerated the procedure well and was extubated in the operating room and transported to the recovery area in stable condition. Complications: none Post-operative Condition: stable Disposition: PACU Plan for aftercare: PACU then to [facility]
[2024-12-29] MEDS: KETOROLAC 30 MG/ML VIAL IV (08:11)
[2024-12-29] MEDS: ONDANSETRON 4 MG/2 ML INJ IV (08:36)
[2024-12-29] MEDS: ACETAMINOPHEN 325 MG TABLET 650 MG PO (13:47)
--- NOTE | 2024-12-29 15:17 | CM.DANOTE ---
Initial DCP Assessment Visit Note Reviewed EMR and team rounds for pt's medical status and updates. Met with pt/spouse at bedside to introduce self and role, pt was found to be resting, recovering from her fence post cutter surgery. Pt lives independently with her spouse and children in their own home here in [place]. Her spouse will transport her home once she's medically stable for d/c, anticipated in 1-more day. No CM d/c or assistance needs are indicated at this time. Payor: [facility] Attending: Dr. Eid Pt is a 34 year-old F who presented to [facility] ED with c/o R-lower quadrant abdominal pain for the last 24-hours. She denies N/V. CT abd/pelivs was positive for acute appendicitis. Surgery was consulted, and the plan was made to admit for surgery in the am. She was started on IV pain meds and IV antibiotics and admitted to the floor. DCP will continue to monitor for any further evolving home d/c needs prior to her departure. Discharge Planning/Care Management CM Discharge Assessment Start: 12/29/24 00:47 Freq: Status: Active Protocol: Document 12/29/24 15:14 DPL (Rec: 12/29/24 15:15 DPL [id number]) Discharge Planning Assessment Assigned Discharge [facility] [employer] Insurance [place] Advance Directives? No History Provided By Patient,Medical Record Has Patient been No admitted in last 30 days? Prior Living House Arrangements Household Members spouse,children Type of Drives own vehicle transporation used prior to admit Independent with ADL Yes 's Is patient alert and Yes oriented? Comment N/A Comment N/A Barriers to No Discharge Discharge Plan Home Transportation Family Arrangement Referrals Initiated None needed Whiteboard Updated Yes in Patient Room with name and ext. # of Mapping Supervisor Review Status In Process Please Provide Date 12/29/24 Initial DC Assessment Was Performed
[2024-12-30] MEDS: metroNIDAZOLE 500 MG/100 ML PIGGYBACK 100 MG IV (00:04)
--- NOTE | 2024-12-30 06:40 | PM.DS.IH.1 ---
History of Present Illness History of Present Illness Date Patient Seen: 12/30/24 Time Patient Seen: 06:40 Chief complaint: sharp consistent rt abd pain Narrative: Patient admitted through ED last night with acute appendicitis. CT demonstrates: Dilated appendix in the right lower quadrant measuring up to 1.8 cm with surrounding fat stranding and edema consistent with acute appendicitis. Inflammatory changes extend to the right pericolic gutter. No organized or drainable fluid collections. From ED HPI: 34-year-old female with history of morbid obesity (recent BMI 44), has history of prior D&C but no other abdominopelvic surgeries, complains of right-sided abdominal pain since 8:00 p.m. the previous night, somewhat sharp. No nausea or vomiting or diarrhea. No painful or frequent urination. No recent exposure to antibiotics. She does not take blood thinner medications. Denies painful or frequent urination. No black or red or loose stools. No injury or trauma new activities. Discharge Providers Provider Date of admission: 12/28/24 23:56 Discharge Date: 12/30/24 Primary care physician: Reena Felipe MD Consults: 12/28/24 23:51 Consult to General Surgery Urgent Comment: Consulting Provider: Jerry Eid Reason for consultation: acute appy Has provider been notified: Yes Discharge provider: Jerry Eid MD Summary Hospital Course Discharge Diagnosis: s/p lap appy for acute appendicitis Hospital Course: Patient presented through ED with acute appendicitis, phlegmon, retrocecal. Had lap appy, RLQ cleaned nicely with irrigation, no duncan perforation, lot of purulent fluid in pelvis and RLQ, drain left at surgery removed prior to discharge, drain had serosanguinous fluid. Tolerated regular diet on POD#1. Was discharged home on POD#2, AVSS Status at Discharge Cognitive/behavioral status at discharge: oriented Functional status at discharge: independent ambulation Overall status at discharge: patient is progressing back to baseline Time Spent with Patient Time spent: Greater than 30 minutes Exam Vital Signs (past 8 hours): Oxygen Delivery Method Room Air Oxygen Flow Rate 0 Const General: comfortable Orientation: alert, awake and oriented x3 Resp Effort & Inspection: normal respiratory effort and able to speak in complete sentences Cardio Rate: regular rate GI Other: ABD: incisions CDI, drain serosang, tenderness appropriate for postop Extrem General: no pedal edema and no calf tenderness Objective Labs 12/28/24 19:53 12/28/24 19:53 PFSH Medical History Depression (~2010) Anxiety (~2010) Chicken pox (~1995) Morbid obesity with BMI of 40.0-44.9, adult Surgical History H/O dilation and curettage Status post bunionectomy History of third molar tooth extraction Social History household members: spouse and children Smoking Status: Never smoker second hand exposure: Yes alcohol intake: current substance use type: does not use Discharge Assessment & Plan Assessment and Plan Assessment: POD#2 lap appy Plan of Treatment: Remove drain Home today See postop instructions Discharge Plan Discharge Plan Patient Disposition: Home Provider Discharge Comment: Diet as tolerated No activity restrictions Shower OK, no swimming for 2 weeks Please call office for postop appt in 2 weeks Miralax for constipation Keep drain site covered with Band-Aid until healed and dry Discharge orders & Medications Prescriptions: New hydrocodone-acetaminophen 5-325 mg Tablet 1 tab PO Q4HR PRN (Reason: Pain, Moderate (4-6)) Qty: 20 0RF Continued letrozole 2.5 mg tablet 5 mg PO DAILY Qty: 30 2RF Follow up/Referrals: Reena Felipe MD [Primary Care Provider, Family Practice] Jerry Eid MD [Physician, General Surgery] Diet/Activity/Treatments Diet: Diet as Tolerated Skin/Wound/Dressing Care Report to your healthcare provider any signs of infection, such as:: chills, fever, night sweats, increased pain, unusual drainage and unusual redness Visit Report/Discharge Packet Instructions: DI for an Appendectomy, DI for Laparoscopy, DI for Prescription Opioid Use Stand Alone Forms: Patient Portal/API, Stroke Signs & Symptoms Discharge Data Primary Care Provider: Reena Felipe Attending Provider: Jerry Eid Admit Date/Time: 12/28/24 23:56 [facility]EE Charge Codes Discharge inpatient/observation: [id number]
--- NOTE | 2024-12-30 08:10 | CM.DPC ---
DCP Cont. Reviewed EMR and team rounds for pt's medical status and updates. Pt has been medically cleared for home d/c today, her spouse will transport her home. No further CM d/c assistance or resource needs indicated at this time.
--- NOTE | 2024-12-30 08:45 | PC.NURSE ---
Assumed care of pt at 0700. Pt is alert and oriented x4. SEPIDEH drain removed with LM Gee. Site does not have a sign of infection, scant amount of serosanguinous drainage observed, 2x2 and tagaderm applied. Discharge order reviewed, instructions given to the pt. PIV removed. Pt discharged with pt's spouse via private vehicle, escorted to the car using a wheelchair.
== END 2024-12-30 07:50 | disposition home or self-care (01) ==
LOC: ED 23:25 → AC 12-29 05:31
PROVIDERS: Emergency Medicine; Admitting Provider Surgery; Emergency Provider Emergency Medicine; PCP Family Medicine; Referring Provider Emergency Medicine; Visit Provider Surgery
PROC: 0DTJ4ZZ Resection of Appendix, Percutaneous Endoscopic Approach (ICD-10-PCS; CPT 44970; principal; 2024-12-29 06:30)
DX: K35.80 Unspecified acute appendicitis (principal); E66.01 Morbid (severe) obesity due to excess calories; Z68.41 Body mass index [BMI] 40.0-44.9, adult; D25.9 Leiomyoma of uterus, unspecified
CPT/HCPCS: 44970; 36415; 74177; 80053; 81003; 81015; 81025; 83690; 85025; 87077; 87086; 87147; 96361; 96365; 96366; 96367; 96368; 96375; 99284; 99291; G0378; J0131; J0330; J0744; J1100; J1171; J1644; J1885; J2250; J2270; J2405; J2704; J3010; J3490; Q9967

== ENCOUNTER → 2025-01-25 14:50 | Outpatient (CLI) | payer OTHER, SELFPAY ==
[2024-12-29 00:47] VITALS: BMI 44.6
[2025-01-25 16:09] LABS: HCG Quantitative /Beta subunit 298.25 mIU/mL
== END ==
PROVIDERS: PCP Family Medicine; Referring Provider Obstetrics & Gynecology; Visit Provider Obstetrics & Gynecology
DX: N91.2 Amenorrhea, unspecified (principal)
CPT/HCPCS: 36415; 84702

== ENCOUNTER → 2025-01-26 13:20 | Outpatient (CLI) | payer OTHER, SELFPAY ==
[2024-12-29 00:47] VITALS: BMI 44.6
[2025-01-26 14:25] LABS: Add Manual Diff / Slide Review NO; Hematocrit 39.2 % (36-46); Hemoglobin 13.2 g/dL (12.0-16.0); Lymphocytes Absolute Auto 1700 /uL (1100-4500); Mean Corpuscular HGB Conc 33.7 % (30-36); Mean Corpuscular Hemoglobin 29.2 PG (26-34); Mean Corpuscular Volume 86.9 fL (80-100); Platelet Count 199 X10^3/uL (150-400)
[2025-01-26 14:46] LABS: Alanine Aminotransferase 19 IU/L (<35); Albumin 4.4 g/dL (3.5-5.0); Albumin Globulin Ratio 1.4 (1.0-2.8); Alkaline Phosphatase 71 U/L (38-126); Blood Urea Nitrogen 6 mg/dL (7-17); Calcium 9.5 mg/dL (8.4-10.2); Carbon Dioxide 23 mmol/L (22-32); Chloride 104 mmol/L (98-107); Estimated Glomerular Filt Rate > 60 mL/min (>60); Globulin 3.2 g/dL (1.7-4.1); Glucose 114 mg/dL (70-99); HEMOLYSIS < 15 (0-50); Potassium 4.1 mmol/L (3.4-5.1); Sodium 135 mmol/L (137-145); Total Protein 7.6 g/dL (6.3-8.2)
[2025-01-26 15:15] LABS: Carcinoembryonic Antigen 1.1 ng/mL (0.1-3.0)
== END ==
PROVIDERS: PCP Family Medicine; Referring Provider Family Medicine; Visit Provider Internal Medicine Hematology & Oncology
DX: D37.3 Neoplasm of uncertain behavior of appendix (principal)
CPT/HCPCS: 36415; 80053; 82378; 85025; 86301; 86304

== ENCOUNTER → 2025-02-17 08:41 | Outpatient (CLI) | payer OTHER, SELFPAY ==
[2024-12-29 00:47] VITALS: BMI 44.6
[2025-02-17 14:57] LABS: Urine N gonorrhoeae NOT DETECTED
[2025-02-17 15:00] LABS: Urine Chlamydia NOT DETECTED
== END ==
PROVIDERS: PCP Family Medicine; Visit Provider Obstetrics & Gynecology
DX: Z11.3 Encounter for screening for infections with a predominantly sexual mode of transmission (principal)
CPT/HCPCS: 87491; 87591

== ENCOUNTER → 2025-02-17 09:06 | Outpatient (CLI) | payer OTHER, SELFPAY ==
[2024-12-29 00:47] VITALS: BMI 44.6
[2025-02-17 10:11] LABS: Add Manual Diff / Slide Review NO; Hematocrit 39.8 % (36-46); Hemoglobin 13.3 g/dL (12.0-16.0); Lymphocytes Absolute Auto 1300 /uL (1100-4500); Mean Corpuscular HGB Conc 33.3 % (30-36); Mean Corpuscular Hemoglobin 28.5 PG (26-34); Mean Corpuscular Volume 85.4 fL (80-100); Platelet Count 197 X10^3/uL (150-400)
[2025-02-17 10:18] LABS: Hemoglobin A1C% w Est Avg Glu 5.2 % (4.0-6.0)
[2025-02-17 11:09] LABS: Hepatitis B Surface Antigen NEGATIVE s/c (NEGATIVE)
[2025-02-17 11:38] LABS: HIV 1 & 2 Ab/Ag 4th Gen Combo NEGATIVE (NEGATIVE); Hep C Virus Ab w/Reflex Quant NEGATIVE s/c (NEGATIVE)
== END ==
PROVIDERS: PCP Family Medicine; Referring Provider Obstetrics & Gynecology; Visit Provider Obstetrics & Gynecology
DX: O09.899 Supervision of other high risk pregnancies, unspecified trimester (principal); E66.01 Morbid (severe) obesity due to excess calories; Z68.41 Body mass index [BMI] 40.0-44.9, adult
CPT/HCPCS: 36415; 80055; 83036; 86787; 86803; 86850; 86900; 86901; 87389; 87491; 87591

== ENCOUNTER → 2025-03-17 09:59 | Outpatient (CLI) | payer OTHER, SELFPAY ==
[2024-12-29 00:47] VITALS: BMI 44.6
[2025-03-17 11:15] LABS: Natera Collection Specimen Collected
== END ==
PROVIDERS: PCP Family Medicine; Referring Provider Obstetrics & Gynecology; Visit Provider Obstetrics & Gynecology
DX: O09.899 Supervision of other high risk pregnancies, unspecified trimester (principal)
CPT/HCPCS: 36415; 87086